=== PATIENT | female | born 2005 | race Caucasian/White ===

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

== ENCOUNTER 2024-12-15 18:54 | Inpatient (IN) | payer OTHER, SELFPAY ==
[2024-12-15] VITALS (7 sets, daily range): BP systolic 118–146; BP diastolic 70–86; PULSE 80–132; RESP 15–18; TEMP 37–38.8; O2SAT 97–100; BMI 24.5
--- NOTE | 2024-12-15 19:22 | CT_ITS ---
PROCEDURE: CT ABDOMEN/PELVIS W IV CONT ONLY 12/15/2024 REASON FOR EXAM: RIGHT FLANK AND RIGHT LOWER QUADRANT PAIN. TECHNIQUE: Procedure Code: [id number] Modality: CT Procedure: ABDOMEN/PELVIS W IV CONT ONLY Coronal and Sagittal reconstruction series were provided. One or more dose reduction techniques were used (e.g., Automated exposure control, adjustment of the mA and/or kV according to patient size, use of iterative reconstruction technique. RADIATION DOSE SUMMARY: DLP: 568.3 mGycm COMPARISON: None. FINDINGS: Lung bases: Clear. Liver: Unremarkable. Gallbladder: Unremarkable. Spleen: Unremarkable. Pancreas: Unremarkable. Adrenals: Unremarkable. Kidneys/Bladder: Bilateral multifocal patchy areas of cortical renal hypo enhancement, more pronounced on the right compatible with acute pyelonephritis. [id number]-wype-left urothelial enhancement consistent with ascending ureteritis/pyelitis. Urinary bladder is underdistended but there is circumferential wall thickening compatible with cystitis. Additionally, there is a tiny 1-2 mm minimally obstructive stone in the distal right ureter just proximal to the ureterovesicular junction, with associated mild right hydroureter. Reproductive Organs: Unremarkable. Bowel: Unremarkable. No obstruction or active inflammation. Normal appendix. Lymph nodes: No suspicious lymph node enlargement. Vasculature: Major vascular structures are patent, normal in course and caliber. Peritoneum / Retroperitoneum: No ascites or free air. Bones: Unremarkable. CT/Abdomen/Pelvis W IV Cont ONLY IMPRESSION: Findings of cystitis, and orjiy-[id number]-xkrf-left ureteritis and pyelonephritis . Additionally, there is a punctate minimally obstructing stone in the distal right ureter with associated mild right hydrour eter. Reading Location: [id number]
[2024-12-15 19:41] LABS: Hematocrit 33.5 % (37-47); Hemoglobin 11.1 g/dL (12.0-15.0); Immature Granulocytes Count 0.040 X10^3/uL (0.0-0.0); Mean Corp Hgb Conc 33.1 g/dL (32-36); Mean Corpuscular Volume 81.3 fL (81-99); Mean Platelet Vol. 9.2 fl (6.2-12.0); NRBC Flagged by Analyzer 0 % (0-5); Platelet Count 273 K/mm3 (150-450); RBC Distribution Width CV 14.3 % (11.6-14.6); RBC Distribution Width SD 42.3 fl (35.1-43.9); Red Blood Count 4.12 M/mm3 (4.2-5.4); White Blood Count 12.3 K/mm3 (4.4-11.0)
--- OUTSIDE RECORDS SUMMARY | 2024-12-15 19:41 | XMS RPT_ITS | CCD ---
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 Very High > or = 500 mg/dL Performed By: #### L [id number], L500.4100 #### [facility] [address] [place], [address] Vital Signs Date Time Vital Sign Value Performing Clinician Jmaar farias 07-30-2024 10:52-0400 Body height 160 cm Khadijah Matamoros APRN.MUSIC PRODUCER Work Phone: [facility] 07-30-2024 10:52-0400 Body mass index (BMI) [Ratio] 24.98 kg/m2 Khadijah Matamoros APRN.MUSIC PRODUCER Work Phone: [facility] 07-30-2024 10:52-0400 Body weight 63.96 kg Khadijah Matamoros APRN.MUSIC PRODUCER Work Phone: [facility] 07-30-2024 10:52-0400 Diastolic blood pressure 64 mm[Hg] Khadijah Matamoros APRN.MUSIC PRODUCER Work Phone: [facility] 07-30-2024 10:52-0400 Systolic blood pressure 110 mm[Hg] Khadijah Matamoros APRN.MUSIC PRODUCER Work Phone: [facility] 07-17-2023 10:26-0400 Body weight 70.13 kg Kelsea Elian 21 DEALER.MUSIC PRODUCER Work Phone: [facility] 07-17-2023 10:26-0400 Diastolic blood pressure 82 mm[Hg] Kelsea Elian 21 DEALER.MUSIC PRODUCER Work Phone: [facility] 07-17-2023 10:26-0400 Systolic blood pressure 120 mm[Hg] Kelsea Elian 21 DEALER.MUSIC PRODUCER Work Phone: [facility] 10-19-2022 08:37-0400 Body height 160.7 cm Kelsea Corydon 21 DEALER.MUSIC PRODUCER Work Phone: [facility] 10-19-2022 08:37-0400 Body mass index (BMI) [Percentile] Per age and sex 76.17 % Kelsea Corydon 21 DEALER.MUSIC PRODUCER Work Phone: [facility] 10-19-2022 08:37-0400 Body weight 62.32 kg Kelsea Corydon 21 DEALER.MUSIC PRODUCER Work Phone: [facility] 10-19-2022 08:37-0400 Diastolic blood pressure 60 mm[Hg] Kelsea Corydon 21 DEALER.MUSIC PRODUCER Work Phone: [facility] 10-19-2022 08:37-0400 Systolic blood pressure 100 mm[Hg] Kelsea Elian 21 DEALER.MUSIC PRODUCER Work Phone: [facility] 04-03-2022 08:30-0500 Body height 161 cm Omar Hopper MD Work Phone: [facility] 04-03-2022 08:30-0500 Body mass index (BMI) [Percentile] Per age and sex 82.31 % Omar Hopper MD Work Phone: [facility] 04-03-2022 08:30-0500 Body temperature 98.4 [degF] Omar Hopper MD Work Phone: [facility] 04-03-2022 08:30-0500 Body weight 64.86 kg Omar Hopper MD Work Phone: [facility] 04-03-2022 08:30-0500 Diastolic blood pressure 72 mm[Hg] Omar Hopper MD Work Phone: [facility] 04-03-2022 08:30-0500 Heart rate 64 /min Omar Hopper MD Work Phone: [facility] 04-03-2022 08:30-0500 Respiratory rate 20 /min Omar Hopper MD Work Phone: [facility] 04-03-2022 08:30-0500 Systolic blood pressure 108 mm[Hg] Omar Hopper MD Work Phone: [facility] Encounters Encounter Date Encounter Type Care Provider Facility Start: 07-30-2024 End: 07-30-2024 Patient encounter procedure Khadijah Matamoros APRN.MUSIC PRODUCER Work Phone: OB/Gynecology Comment on above: Encounter for gyneco logical examination (general) (routine) without abnormal findings (Primary Dx); Encounter for initial prescription of contraceptive pills Start: 07-30-2024 End: 07-30-2024 Patient encounter status Khadijah Matamoros APRN.MUSIC PRODUCER Work Phone: [facility] Start: 07-30-2024 End: 07-30-2024 ambulatory KHADIJAH MATAMOROS Facility:[facility] Start: 07-30-2024 Encounter for gynecological examination (general) (routine) without abnormal findings KHADIJAH JAMES [facility] Start: 07-29-2024 End: 07-29-2024 Refill Kelsea Elian 21 DEALER.MUSIC PRODUCER Work Phone: OB/Gynecology Comment on above: Refill Request Start: 07-17-2023 End: 07-17-2023 Patient encounter procedure Kelsea Elian 21 DEALER.MUSIC PRODUCER Work Phone: OB/Gynecology Comment on above: Encounter for gyneco logical examination (general) (routine) without abnormal findings (Primary Dx); Encounter for surveillance of contraceptive pills Start: 07-17-2023 End: 07-17-2023 Patient encounter status Kelsea Plummer APRN.MUSIC PRODUCER Work Phone: [facility] Work Phone: Start: 10-19-2022 End: 10-19-2022 Patient encounter procedure Kelsea Corydon KENNY.MUSIC PRODUCER Work Phone: OB/Gynecology Comment on above: Encounter for gyneco logical examination (general) (routine) without abnormal findings (Primary Dx); Encounter for surveillance of contraceptive pills Start: 10-19-2022 End: 10-19-2022 Patient encounter status Kelsea Plummer 21 DEALER.MUSIC PRODUCER Work Phone: OB/Gynecology Start: 10-03-2022 Refill Omar Hopper MD Work Phone: [facility] [place] Comment on above: Refill Request Start: 04-03-2022 End: 04-03-2022 Patient encounter status Omar Hopper MD Work Phone: [facility] [place] Start: 04-03-2022 End: 04-03-2022 Periodic preventive med est patient 12-17yrs Omar Hopper MD Work Phone: [facility] [place] Comment on above: Encounter for routin e child health examination w/o abnormal findings (Primary Dx) Start: 03-31-2022 Refill Omar Hopper MD Work Phone: [facility] [place] Comment on above: Refill Request Start: 01-31-2022 End: 01-31-2022 Patient encounter procedure Nurse Josi [place] [facility] [place] Comment on above: Encounter for immuni zation (Primary Dx) Start: 07-30-2020 End: 07-30-2020 Subsequent hospital visit by physician Cait [facility] [place] Work Phone: Radiology Comment on above: Finger injury, left, initial encounter [S69.92XA] Procedures Date Procedure Procedure Detail Performing Clinician Start: 04-03-2022 Adult depression screening assessment Omar Hopper MD Work Phone: Start: 01-31-2022 Menacwy-tt conj vacc serogroups acwy for im use Cherelle Liz PA-C Work Phone: Start: 07-30-2020 Radex fingr minimum 2 views Gege Connolly 21 DEALER.MUSIC PRODUCER Work Phone: Start: 04-19-2020 Adult depression screening assessment Nurse [place] Plan of Treatment Date Care Activity Detail Author Start: 07-10-2026 Urine microalbumin profile [facility] Start: 08-17-2025 End: 08-17-2025 Patient encounter procedure 08/17/2025 10:15 AM EDT Office Visit OB/Gynecology [address] [place] [address] Khadijah Matamoros APRN.MUSIC PRODUCER [address] [place] [address] Annual [facility]cology Comment on above: Annual Start: 07-30-2024 End: 07-30-2024 Patient encounter procedure 07/30/2024 10:15 AM EDT Office Visit OB/Gynecology [address] [place] [address] Khadijah Matamoros, KENNY.MUSIC PRODUCER [address] [place] [address] annual OB/Gynecology Comment on above: annual Start: 12-16-2023 Covid-19 Vaccine ( season) Covid-19 Vaccine ( season) [facility] Start: 12-16-2023 Influenza vaccination [facility] Start: 04-16-2023 Depression Assessment Depression Ass essment [facility] Start: 04-03-2023 Adult depression screening assessment DEPRESSION SCREENING [facility] Start: 12-15-2022 Covid-19 Vaccine ( season) Covid-19 Vaccine ( season) [facility] Start: 12-15-2022 Influenza vaccination [facility] Start: 2022 Anxiety Screening Anxiety Screening [facility] Start: 2022 CHLAMYDIA SCREENING (18-24) CHLAMYDIA SCREENING (18-24) [facility] Start: 2022 Depression Screening Depression Scre ening [facility] Start: 2022 GC (GONORRHEA) SCREE JOSÉ MIGUEL (18-24) GC (GONORRHEA) SCREENING (18-24) [facility] Start: 2022 HEPATITIS C SCREENING HEPATITIS C SC KAMERON [facility] Start: 2022 Hepatitis C screening Hepatitis C Sc reening [facility] Start: 2022 HIV SCREENING HIV SCREENING [facility] Start: 2022 HIV screening HIV Screening [facility] Start: 2022 Screening for Chlamy miguelina trachomatis Chlamydia Screening (18-24) [facility] Start: 04-16-2022 DEPRESSION ASSESSMENT DEPRESSION ASS ESSMENT [facility] Start: 12-15-2021 Influenza vaccination INFLUENZA (#1) [facility] Start: 04-19-2021 Adult depression screening assessment DEPRESSION SCREENING [facility] Start: 2020 Meningococcal B Vacc ine (1 of 2 - Standard) Meningococcal B Vaccine (1 of 2 - Standard) [facility] Start: 2020 Meningococcal B Vacc ine: Consider Based On Risk (1 of 2 - Patient Seeks Protection) Meningococcal B Vaccine: Consider Based On Risk (1 of 2 - Patient Seeks Protection) [facility] Start: 2019 CHLAMYDIA SCREENING (<18) CHLAMYDIA SCREENING (<18) [facility] Start: 2019 GC (GONORRHEA) SCREE JOSÉ MIGUEL (<18) GC (GONORRHEA) SCREENING (<18) [facility] Start: 2018 PEDS TO ADULT TRANSI TION ANNUAL ASSESSMENT PEDS TO ADULT TRANSITION ANNUAL ASSESSMENT [facility] Start: 2016 PEDS TO ADULT TRANSI TION INITIAL DISCUSSION PEDS TO ADULT TRANSITION INITIAL DISCUSSION [facility] Start: 2014 MENINGOCOCCAL B: 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 based on risk (1 of 2 - Risk Bexsero 2-dose series) MENINGOCOCCAL B: Consider based on risk (1 of 2 - Risk Bexsero 2-dose series) [facility] Start: 2004 COVID-19 VACCINE (#1) COVID-19 VACCI NE (#1) [facility] Immunizations Immunization Date Immunization Notes Care Provider Ginger sahu 01-31-2022 meningococcal (MenACWY-TT) vaccine, quadrivalent (MENQUADFI) Nurse [place] [facility] Work Phone: 04-19-2020 Human Papillomavirus 9-valent vaccine Nurse [place] [facility] 04-19-2020 influenza, injectabl e, quadrivalent, contains preservative Nurse [facility] 04-19-2020 influenza virus vacc ine, unspecified formulation Kelsea Plummer APRN.CNP Work Phone: [facility] 09-12-2017 Human Papillomavirus 9-valent vaccine Nurse [facility] 07-10-2016 meningococcal polysaccharide (groups A, C, Y and W-135) diphtheria toxoid conjugate vaccine (MCV4P) Nurse [facility] 07-10-2016 tetanus toxoid, redu karolina diphtheria toxoid, and acellular pertussis vaccine, adsorbed Nurse [facility] 07-19-2009 diphtheria, tetanus toxoids and acellular pertussis vaccine Nurse [facility] Work Phone: 07-19-2009 measles, mumps and rubella virus vaccine Nurse [facility] Work Phone: 07-19-2009 poliovirus vaccine, inactivated Nurse [facility] Work Phone: 07-19-2009 varicella virus vaccine Nurse [facility] Work Phone: 01-07-2009 haemophilus influenz ae type b vaccine, HbOC conjugate [facility] Work Phone: 01-07-2009 influenza virus vacc ine, live, attenuated, for intranasal use Nurse [facility] Work Phone: 02-27-2006 influenza virus vacc ine, unspecified formulation Nurse [facility] Work Phone: 02-27-2006 pneumococcal conjuga te vaccine, 7 valent Nurse [facility] Work Phone: 10-23-2005 diphtheria, tetanus toxoids and acellular pertussis vaccine [facility] Work Phone: 05-08-2005 haemophilus influenz ae type b conjugate and Hepatitis B vaccine Nurse [facility] Work Phone: 05-08-2005 measles, mumps and rubella virus vaccine Nurse [facility] Work Phone: 05-08-2005 varicella virus vaccine Nurse [facility] Work Phone: 02-21-2005 influenza virus vacc ine, unspecified formulation Nurse [facility] Work Phone: 02-01-2005 diphtheria, tetanus toxoids and acellular pertussis vaccine Nurse [facility] 02-01-2005 poliovirus vaccine, inactivated Nurse [facility] 2004 pneumococcal conjuga te vaccine, 7 valent [facility] 2004 diphtheria, tetanus toxoids and acellular pertussis vaccine [facility] 2004 haemophilus influenz ae type b vaccine, HbOC conjugate [facility] 2004 hepatitis B vaccine, pediatric or pediatric/adolescent dosage Nurse [facility] 2004 poliovirus vaccine, inactivated Nurse [facility] 2004 pneumococcal conjuga te vaccine, 7 valent [facility] 2004 diphtheria, tetanus toxoids and acellular pertussis vaccine [facility] 2004 haemophilus influenz ae type b vaccine, HbOC conjugate [facility] 2004 hepatitis B vaccine, pediatric or pediatric/adolescent dosage [facility] 2004 poliovirus vaccine, inactivated [facility] 2004 pneumococcal conjuga te vaccine, 7 valent [facility] Payers Date Payer Category Payer Private Health Insurance [id number] 2022 Unknown [id number] 2020 Private Health Insurance [id number] Social History Date Type Detail Facility Start: 09-12-2017 End: 04-03-2022 Tobacco smoking status NHIS Never smoked tobacco [facility] Start: 09-12-2017 End: 04-03-2022 Tobacco use and exposure Smokeless tobacco non-user [facility] Start: 11-15-2020 End: 07-30-2024 Alcohol intake Lifetime non-drinker (finding) [facility] Start: 04-19-2020 End: 04-03-2022 History SDOH Alcohol Frequency 1 [facility] Start: 2004 Sex Assigned At Not on file [facility] Start: 06-30-2020 End: 01-12-2022 Exposure to SARS-CoV-2 (event) Not sure [facility] Work Phone: Start: 04-03-2022 History SDOH Physica l Activity DPW 6 [facility] Start: 04-03-2022 History SDOH Physica l Activity MPS 5 [facility] Start: 04-03-2022 History SDOH Transport Med 2 [facility] Start: 04-19-2020 End: 10-03-2022 History of Social function [facility] Start: 04-19-2020 End: 10-03-2022 Alcohol Use Disorder Identification Test - Consumption [AUDIT-C] [facility] How often to you hav e a drink containing alcohol? Never [facility] Average Number of Drinks Not on file [facility] (I/We) worried porfirio er (my/our) food would run out before (I/we) got money to buy more. Never true [facility] In the past 12 month s, was there a time when you were not able to pay the mortgage or rent on time? No [facility] Functional Status Date Assessment Result Facility 07-09-2013 Are you deaf, or do you have serious difficulty hearing No 07/09/2013 11:10 AM Ly Wayne RN No [facility] 07-09-2013 Are you blind, or do you have serious difficulty seeing, even when wearing glasses No 07/09/2013 11:10 AM Ly Wayne RN No [facility] 07-09-2013 Do you have serious difficulty walking or climbing stairs No 07/09/2013 11:10 AM Ly Wayne RN No [facility] 07-09-2013 Do you have difficul ty dressing or bathing No 07/09/2013 11:10 AM Ly Wayne RN No [facility] Mental Status Date Assessment Result Facility 07-09-2013 Because of a physica l, mental, or emotional condition, do you have serious difficulty concentrating, remembering, or making decisions Yes 07/09/2013 11:10 AM Ly Wayne RN Yes [facility] Clinical Notes 07-30-2020 to 07-30-2024 Patient InstructionsKhadijah Matamoros APRN.[facility] - 07/30/2024 10:49 AM EDTTelephone Encounter - Jaycee Contreras RN - 07/29/2024 11:04 AM EDKelsea Arriola APRN.MUSIC PRODUCER - 07/17/2023 10:24 AM EDT Note Date & Type Note Facility 07-30-2024 Instructions Khadijah Matamoros APRN.[facility] - 07/30/2024 11:07 AM EDT Oral Contraceptives: The Pill Beginning the Pill Pills come in either a 21 day pack or a 28 day pack. With the 21 day pack you will take one pill for 21 days then no pill for 7 days, during which time you will have what is known as withdrawal bleeding. The 28 day pack allows you to take a pill every day of the cycle with no interruptions. The first 21 pills are the pills with the active ingredients and the last 7 are the nonmedical pills (placebo) or they may contain iron. There will be bleeding during the week you are taking the nonmedical pills. The advantage to the 28 day pack is that you don t have to keep track of when you stopped the pill. There are a group of 28 day pills that contain 24 active pills and only 4 placebo pills. These are formulated to give you a rand butter period. First day of next menstrual period start OR Quick Start (starting the day you get the pill) when reasonably certain not . Use 7 day back up contraception. OR Sunday start. Use back up contraception for 7 days. Sunday start can result in no period on weekends. Read your information packet that comes with the pills. Pill Benefits The pill is the most popular method of reversible control being used today. Millions of women rely on oral contraceptives as their control method. It is important to have an examination by your physician to determine if the pill is safe for you. There are several advantages associated with the pill: it is 97-98% effective when used correctly; may improve acne; periods are more regular and less painful; there is less iron deficiency anemia in pill users. [facility] use is associated with a decreased incidence of ovarian and uterine cancer. There is also no evidence that the pill increases the incidence of any cancer. How Oral Contraceptives Work Oral contraceptives come in two varieties. One is the combination pill which contains both estrogen and progesterone. Combination pills are considered 98-99% effective in preventing . This pill comes in either monophasic, which delivers the same amount of estrogen and progesterone throughout the cycle; and triphasic, which try tries to mimic the normal hormone cycle by changing the levels of the hormones in the pills during the month. There is no real advantage to taking the one over the other. The other type of pill only contains progesterone. It is best used for women who can t take estrogen. This type of pill is slightly less effective than the combination pill in preventing . It is VERY important to take the progesterone only pill at the same time every day. Oral contraceptives prevent ovulation (release of an egg from the ovary) by suppressing the pituitary gland s action. The pill does NOT prevent sexually transmitted disease. Obtaining a Prescription It is important to see your doctor before starting oral contraceptives so that you can have a full medical history taken and a physical examination given. Certain medical conditions may make the pill inappropriate for you, therefore it is very important to be honest and as complete as possible with the information you share with your doctor. The types of predisposing factors which would make the pill a poor choice of control would include: History of blood clots Stroke Serious liver disease or impaired liver function Unexplained vaginal bleeding or Cancer of the reproductive system Active gall bladder disease Hypertension Possible Side Effects It can take up to three months for your body to become adjusted to the pill. The more common side effects experienced at this time are: breakthrough spotting or bleeding, which is bleeding at any other time other than when you should be having a period; nausea or vomiting; breast tenderness; and mild fluid retention. There is no long-term weight gain with the use of the pill. Breakthrough bleeding is the most common complaint of new pill users. There is no way to predict who will have it and there is no way of preventing it. Breakthrough bleeding usually subsides on its own with no further treatment after the first three months of taking the pill. If these symptoms continue to occur after the first three months you should check with your physician to see if there is any physical cause and possibly change to another control pill. Problems: Missed 1 pill: Take 2 pills the next day. Missed 2 pills: Take 2 pills the next day and 2 pills the following day. Also use another form of control (condoms) along with the pill for the rest of the month. Missed 3 or more pills: You have two choices. You can take two pills each day until you are on schedule, plus use an additional form of control along with the pill for the rest of the month. Or you can stop the pill and start a completely new pack of pills the next Sunday. You must use another form of control with the pill for at least the first two weeks of the new pack. You re ill and you have been vomiting or have diarrhea: You must use another form of control with the pill since the pill may not be fully absorbed during your illness. Continue to use the added control until the end of the cycle. Desire to become : Stop using the pill for one month before trying to become . Taking other medications: The control pill is less effective when you take the antibiotic Rifampin, epilepsy (seizure) drugs such as phenytoin, carbamazepine, phenobarbital, topiramate and some medications for HIV. Let your doctor know if you start taking any of these medications while on the pill. Symptoms to Notify Your Doctor with Immediately: Pain in your chest or legs Continuous blurred vision Severe headaches Slurred speech Tingling or weakness on one side of your body Shortness of breath Swelling of one leg Refills of Control Pills You need to see a doctor every year for a refill of your prescription. This is necessary in order that your health can be monitored closely while you are taking control pills. If your prescription should before your next scheduled appointment you can usually get a one month extension from your doctors office if you call during regular business hours about one week before you need to start the new package of pills. This allows the physician to refer to your chart for necessary health information. documented in this encounter [facility] 07-30-2024 Note HNO ID: [id number] Author: KHADIJAH MATAMOROS APRN.CNP Service: ? Author Type: Nurse Practitioner Type: Progress Notes Filed: 07/30/2024 11:15 Note Text: Justine is a 19 year old who presents for an annual gynecologic exam without complaints. 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 Interested in nutrition. Presents: alone Still get period: Yes Menses: cycles every 28 days and 3-4 days of flow Bleeding amount bothersome: No Bleeding between periods: No Period symptoms: Acne; Cramps; Mood change control frequency: Always HPV vaccine: Yes Last pap smear: never Bothersome pelvic pain: No Sexually Active: Yes OB History Gravida0 Para0 Term0 Preterm0 AB0 Living0 SAB0 IAB0 Ectopic0 Multiple0 Live Births0 Bottom Worker History LMP: 07/05/2024, Having periods Age at Menarche: 11 Age at First : Age at Menopause: Bottom Worker History Comments: Sexual Activity: Yes; Male Contraception: Pill Menstrual Tracking History Flowsheet Row Appointment from 07/30/2024 in OB/Gynecology Period Duration (Days) 3 Menstrual Flow Light PAST MEDICAL HISTORY Diagnosis Date NEGATIVE MEDICAL HISTORY PAST SURGICAL HISTORY Procedure Laterality Date NONE FAMILY HISTORY Problem Relation Age of Onset Cancer Mother Diabetes Mother Maternal AND Paternal sides No Known Problems Father No Known Problems Sister No Known Problems Sister No Known Problems Sister No Known Problems Maternal Grandmother No Known Problems Maternal Grandfather No Known Problems Paternal Grandmother No Known Problems Paternal Grandfather SOCIAL HISTORY Social History Tobacco Use Smoking status: Never Smokeless tobacco: Never Vaping Use Vaping status: Never Used Substance Use Topics Alcohol use: Never Drug use: Never REVIEW OF SYSTEMS Abdomen: No bloating, early satiety, indigestion, or increased flatulence. No abdominal pain, nausea, vomiting, diarrhea, or constipation. Bladder: No dysuria, gross hematuria, urinary frequency, urinary urgency, or incontinence. Breast: No breast lumps, nipple d/c, overlying skin changes, redness or skin retraction. Allergies and current medication updated:Yes SENSITIVE EXAM: Sensitive exam declined. Discussed rationale and impact on treatment. EXAM: BP 110/64 Ht 5' 3 (1.60m) Wt 141 lb (64.0kg) LMP 07/05/2024 BMI 24.98 kg/(m2). GENERAL: pleasant, in no apparent distress HEENT: Normocephalic, atraumatic, mucus membranes moist, and no lesions NECK: Supple, full range of motion, no adenopathy, and thyroid normal DERMATOLOGY: Normal, without lesions, non-icteric, and non-hirsute BREAST: deferred CHEST: Normal inspiratory effort ABDOMEN: soft, non-tender, and no masses PELVIC: deferred BIMANUAL: deferred NEURO: alert and oriented x3,exam grossly non-focal EXTREMITIES: normal ASSESSMENT/PLAN: 1) Health maintenance: Pap starting at the age of 21. Safe sex practices reviewed. Nutrition, exercise, and routine health maintenance exams reviewed. HPV vaccine completed series.. 2) Contraception: combined hormonal contraceptives. . Denies migraines with aura, VTE history or clotting disorder, hypertension, or liver issues. Does not smoke. Reviewed risks of OCP. Written info provided. 3) STD screening: Declined STD check. 4) Follow up one year or sooner as needed. Khadijah Matamoros APRN.[facility] 07-30-2024 History of Presen t illness Narrative Justine is a 19 year old who presents for an annual gynecologic exam without complaints. 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 Interested in nutrition. Presents: alone Still get period: Yes Menses: cycles every 28 days and 3-4 days of flow Bleeding amount bothersome: No Bleeding between periods: No Period symptoms: Acne; Cramps; Mood change control frequency: Always HPV vaccine: Yes Last pap smear: never Bothersome pelvic pain: No Sexually Active: Yes OB History Gravida0 Para0 Term0 Preterm0 AB0 Living0 SAB0 IAB0 Ectopic0 Multiple0 Live Births0 Bottom Worker History LMP: 07/05/2024, Having periods Age at Menarche: 11 Age at First : Age at Menopause: Bottom Worker History Comments: Sexual Activity: Yes; Male Contraception: Pill Menstrual Tracking History Flowsheet Row Appointment from 07/30/2024 in OB/Gynecology Period Duration (Days) 3 Menstrual Flow Light PAST MEDICAL HISTORY Diagnosis Date NEGATIVE MEDICAL HISTORY PAST SURGICAL HISTORY Procedure Laterality Date NONE FAMILY HISTORY Problem Relation Age of Onset Cancer Mother Diabetes Mother Maternal & Paternal sides No Known Problems Father No Known Problems Sister No Known Problems Sister No Known Problems Sister No Known Problems Maternal Grandmother No Known Problems Maternal Grandfather No Known Problems Paternal Grandmother No Known Problems Paternal Grandfather SOCIAL HISTORY Social History Tobacco Use Smoking status: Never Smokeless tobacco: Never Vaping Use Vaping status: Never Used Substance Use Topics Alcohol use: Never Drug use: Never REVIEW OF SYSTEMS Abdomen: No bloating, early satiety, indigestion, or increased flatulence. No abdominal pain, nausea, vomiting, diarrhea, or constipation. Bladder: No dysuria, gross hematuria, urinary frequency, urinary urgency, or incontinence. Breast: No breast lumps, nipple d/c, overlying skin changes, redness or skin retraction. Allergies and current medication updated:Yes SENSITIVE EXAM: Sensitive exam declined. Discussed rationale and impact on treatment. EXAM: BP 110/64 Ht 5' 3 (1.60m) Wt 141 lb (64.0kg) LMP 07/05/2024 BMI 24.98 kg/(m^2). GENERAL: pleasant, in no apparent distress HEENT: Normocephalic, atraumatic, mucus membranes moist, and no lesions NECK: Supple, full range of motion, no adenopathy, and thyroid normal DERMATOLOGY: Normal, without lesions, non-icteric, and non-hirsute BREAST: deferred CHEST: Normal inspiratory effort ABDOMEN: soft, non-tender, and no masses PELVIC: deferred BIMANUAL: deferred NEURO: alert and oriented x3,exam grossly non-focal EXTREMITIES: normal ASSESSMENT/PLAN: 1) Health maintenance: Pap starting at the age of 21. Safe sex practices reviewed. Nutrition, exercise, and routine health maintenance exams reviewed. HPV vaccine completed series.. 2) Contraception: combined hormonal contraceptives. . Denies migraines with aura, VTE history or clotting disorder, hypertension, or liver issues. Does not smoke. Reviewed risks of OCP. Written info provided. 3) STD screening: Declined STD check. 4) Follow up one year or sooner as needed. Khadijah Matamoros APRN.AG documented in this encounter [facility] 07-29-2024 Telephone encount er Note Last annual 07/2023. Transferred to [facility] to schedule annual - had to update insurance. Requested Prescriptions Pending Prescriptions Disp Refills Drospirenone-Ethinyl Estradiol (WENDY, 28,) 3-0.02 mg per tablet 84 tablet 0 Sig: Take 1 tablet by mouth once daily. Jaycee Contreras RN [facility] 07-29-2024 Miscellaneous Notes Formattin g of this note is different from the original. Last annual 07/2023. Transferred to [facility] to schedule annual - had to update insurance. Requested Prescriptions Pending Prescriptions Disp Refills Drospirenone-Ethinyl Estradiol (WENDY, 28,) 3-0.02 mg per tablet 84 tablet 0 Sig: Take 1 tablet by mouth once daily. Jaycee Contreras RN documented in this encounter [facility] 07-17-2023 History of Presen t illness Narrative Justine is a 18 year old who presents for an annual gynecologic exam without complaints. Presents: alone Menses: cycles every 21-24 days and 3 days of flow. Contraception: combined hormonal contraceptives HPV vaccine: Yes Last pap smear: never Sexually active: Yes Patient concerns for STD exposure: No. Pain with intercourse: No Postcoital bleeding: No OB History T0 L0 SAB0 IAB0 Ectopic0 Multiple0 Live Births0 Bottom Worker History LMP: 07/14/2023 (Exact Date), Having periods Age at Menarche: Age at First : Age at Menopause: Bottom Worker History Comments: Sexual Activity: Yes; Male Contraception: Pill PAST MEDICAL HISTORY Diagnosis Date NEGATIVE MEDICAL HISTORY PAST SURGICAL HISTORY Procedure Laterality Date NONE FAMILY HISTORY Problem Relation Age of Onset Cancer Mother Diabetes Mother Maternal & Paternal sides No Known Problems Father No Known Problems Sister No Known Problems Sister No Known Problems Sister No Known Problems Maternal Grandmother No Known Problems Maternal Grandfather No Known Problems Paternal Grandmother No Known Problems Paternal Grandfather SOCIAL HISTORY Social History Tobacco Use Smoking status: Never Smokeless tobacco: Never Vaping Use Vaping Use: Never used Substance Use Topics Alcohol use: Never Drug use: Never REVIEW OF SYSTEMS Abdomen: No bloating, early satiety, indigestion, or increased flatulence. No abdominal pain, nausea, vomiting, diarrhea, or constipation. Bladder: No dysuria, gross hematuria, urinary frequency, urinary urgency, or incontinence. Breast: No breast lumps, nipple d/c, overlying skin changes, redness or skin retraction. Allergies and current medication updated:Yes EXAM: BP 120/82 Wt 154 lb 9.6 oz (70.1kg) LMP 07/14/2023 GENERAL: pleasant, in no apparent distress HEENT: Normocephalic, atraumatic, mucus membranes moist, and no lesions CHEST: Normal inspiratory effort NEURO: alert and oriented x3,exam grossly non-focal EXTREMITIES: normal ASSESSMENT/PLAN: 1) Health maintenance: Pap starting at the age of 21. Safe sex practices reviewed. HPV vaccine completed series.. 2) Contraception: combined hormonal contraceptives. Contraceptive options reviewed and information provided. 3) STD screening: Declined STD check. 4) Follow up one year or sooner as needed. Kelsea Plummer APRN.CNP documented in this encounter [facility] 10-19-2022 History of Presen t illness Narrative Justine is a 17 year old who presents for an annual gynecologic exam without complaints. Presents: alone Menses: cycles every 21-24 days and 3 days of flow. Contraception: combined hormonal contraceptives HPV vaccine: Yes Last pap smear: never Sexually active: Yes History of STDS: None Patient concerns for STD exposure: No. OB History T0 L0 SAB0 IAB0 Ectopic0 Multiple0 Live Births0 Bottom Worker History LMP: 10/02/2022 (Exact Date), Having periods Age at Menarche: Age at First : Age at Menopause: Bottom Worker History Comments: Sexual Activity: Yes; Male Contraception: Pill PAST MEDICAL HISTORY Diagnosis Date NEGATIVE MEDICAL HISTORY PAST SURGICAL HISTORY Procedure Laterality Date NONE FAMILY HISTORY Problem Relation Age of Onset Cancer Mother Diabetes Mother Maternal & Paternal sides No Known Problems Father No Known Problems Sister No Known Problems Sister No Known Problems Sister No Known Problems Maternal Grandmother No Known Problems Maternal Grandfather No Known Problems Paternal Grandmother No Known Problems Paternal Grandfather SOCIAL HISTORY Social History Tobacco Use Smoking status: Never Smokeless tobacco: Never Vaping Use Vaping Use: Never used Substance Use Topics Alcohol use: Never Drug use: Never REVIEW OF SYSTEMS Abdomen: No bloating, early satiety, indigestion, or increased flatulence. No abdominal pain, nausea, vomiting, diarrhea, or constipation. Bladder: No dysuria, gross hematuria, urinary frequency, urinary urgency, or incontinence. Breast: No breast lumps, nipple d/c, overlying skin changes, redness or skin retraction. Allergies and current medication updated:Yes EXAM: Ht 5' 3.25 (1.61m) Wt 137 lb 6.4 oz (62.3kg) LMP 10/02/2022 BMI 24.13 kg/(m^2). GENERAL: pleasant, in no apparent distress HEENT: Normocephalic, atraumatic, mucus membranes moist, and no lesions CHEST: Normal inspiratory effort NEURO: alert and oriented x3,exam grossly non-focal EXTREMITIES: normal ASSESSMENT/PLAN: 1) Health maintenance: Pap starting at the age of 21. HPV vaccine completed series.. 2) Contraception: combined hormonal contraceptives. Contraceptive options reviewed and information provided. 3) STD screening: Declined STD check. 4) Follow up one year or sooner as needed. Kelsea Plummer APRN.AG documented in this encounter [facility] 10-03-2022 Miscellaneous Notes Formattin g of this note might be different from the original. Patient called. Her insurance just changed and WENDY is not covered. Patient is willing to pay out of pocket at this time until other options are discussed. Aware RM sent in one pack with one refill until her visit. Kathie Urbano RN Received call from [facility] that patient can no longer receive refills of OCP by Peds since she is now 17 and will need to see FORESTRY TECHNICAL OFFICER. Patient is leaving for vacation on and will need to start a new pack. Patient has a New annual on 10/19 with RM. Can we please send in an extension of OCP until she establishes care with our office next month? RX pending. Kathie Urbano RN documented in this encounter [facility] 10-03-2022 Miscellaneous Notes Formattin g of this note might be different from the original. refilled by FORESTRY TECHNICAL OFFICER today Last [facility]: 04/03/22 - call transferred to [facility] to assist with scheduling for FORESTRY TECHNICAL OFFICER. Verify RX Benefits Completed Last medication refill date: 03/31/22 (336 tabs- only 1 pack given, patient checked with [facility] and states they have no remaining refills on file. She has been off the medication.) Requesting 30 day supply Retail pharmacy updated: Completed Patient aware RX will be sent to pharmacy. No need to notify patient. Immunizations due: COVID-19 VACCINE(1) Never done MENINGOCOCCAL B: Consider based on risk(1 of 2 - Risk Bexsero 2-dose series) Never done DEPRESSION ASSESSMENT Never done GC (GONORRHEA) SCREENING (18-24) Never done HEPATITIS C SCREENING Never done HIV SCREENING Never done CHLAMYDIA SCREENING (18-) Never done Ly Worley RN documented in this encounter [facility] 04-03-2022 History of Presen t illness Narrative WELL VISIT PEDIATRIC FEMALE 14-17 YRS OLD SERVICE DATE: 04/03/2022 Justine is a 16 year old female who presents today for well exam accompanied by her mother. 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 PEDI MULTIVIT NO.7/FOLIC ACID (FLINTSTONES MULTI-VIT GUMMIES ORAL) Take by mouth. Ascorbic Fjuy-Afprvsweh-Gyc (EMERGEN-C) 1,000 mg pwep Take by mouth. FAMILY HISTORY Problem Relation Age of Onset Cancer Mother Diabetes Mother Maternal & Paternal sides Social History Social History Narrative Not on file Smoking Exposure: Does your child spend a significant amount of time in the care of anyone who smokes? No School: Grade: 12th; grades A-B and C. Planning on college next year Physical Activity: more than 1 hour of physical activity per day works at [employer] Screen Time totaling more than 2 hours of screen time per day. Safety: Pediatric SDOH - Response to gun questions 04/03/2022 Are there any guns kept in or around your home or where your child spends time? No Reviewed seat belts, smoke detectors, and driving Diet: -Eats 3 meals per day and 4-5 snacks per day -Typical beverages include water, vitamin water, oj -Fruits and vegetables are eaten with nearly every meal -# of fast food meals/week: 2 -# of days/week that family has dinner together: 7 Elimination: no concerns, normal size and consistency Dental: dental care current Sleep: -no sleep concerns Yes, cell phone turned off before bedtime- Yes -television in bedroom -computer in bedroom Vision: No vision concerns Hearing: No hearing concerns Growth: No growth concerns Gynecological history: LMP: 03-29-22 Cycles are regular and last 3-4 days. Dysmenorrhea: none Heavy periods: no Substance use: none High risk behaviors: none Sexual History: Attraction: male Sexually Active: No Body image: satisfactory Screening tools reviewed and discussed with patient/[id number]-S and Social Determinants of Health. Please see Patient Entered Data. OBJECTIVE Physical Exam: BP 108/72 Pulse 64 Temp 36.9 C (98.4 F) (Temporal) Resp 20 Ht 161 cm (5' 3.39) Wt 64.9 kg (143 lb) LMP 03/29/2022 (Exact Date) BMI 25.02 kg/m Blood pressure percentiles are 42 % systolic and 79 % diastolic based on the 2017 AAP Clinical Practice Guideline. This reading is in the normal blood pressure range. 82 %ile (Z= 0.93) based on CDC (Girls, 2-20 Years) BMI-for-age based on BMI available as of 04/03/2022. Last BMI: Wt: 59.8 kg (131 lb 12.8 oz) (69 %, Z= 0.51)* BMI: 23.72 kg/(m^2) Last 4 Encounter Wt Readings: Date: Wt: 11/15/2020 59.8 kg (131 lb 12.8 oz) (69 %, Z= 0.51)* 07/30/2020 60.3 kg (133 lb) (72 %, Z= 0.58)* 04/19/2020 61.7 kg (136 lb) (76 %, Z= 0.72)* 11/21/2019 65.8 kg (145 lb) (85 %, Z= 1.05)* Last 4 Encounter Ht Readings: Date: Ht: 11/15/2020 158.8 cm (5' 2.5) (27 %, Z= -0.62)* 04/19/2020 160 cm (5' 2.99) (35 %, Z= -0.39)* 11/25/2018 160 cm (5' 3) (42 %, Z= -0.21)* 09/12/2017 158.8 cm (5' 2.5) (50 %, Z= 0.01)* General: Well developed, No acute distress Head: normocephalic Eyes: conjunctivae/corneas clear Ears: normal external ear and canal, tympanic membranes with normal landmarks Nose: no erythema or rhinorrhea Oropharynx: moist mucous membranes, no erythema or exudate Neck: Supple, no adenopathy; thyroid symmetric, normal size, no bruits Spine: Back symmetric, no curvature Resp: lungs clear to auscultation Heart: RRR, normal S1 and S2. , No murmurs Abdomen: Soft, nontender, nondistended, no palpable organomegaly or masses, normal bowel sounds Extremities: Full ROM and no swelling, erythema or tenderness Neuro: No focal deficits or abnormal findings present Skin: no rashes, lesions or jaundice ASSESSMENT & PLAN Encounter Diagnosis ICD-10-CM 1. Encounter for routine child health examination w/o abnormal findings Z00.129 82 %ile (Z= 0.93) based on CDC (Girls, 2-20 Years) BMI-for-age based on BMI available as of 04/03/2022. Justine is normal weight (BMI 5th% - 84th%): -To maintain a healthy weight, discussed limiting screen time to less than 2 hours per day, physical activity for at least one hour per day, 5 servings of fruits and vegetables per day, 3 meals per day, family meals ar home and no sugar containing beverages Based on PHQ-A Score: 1 (recommended cut off score is 11) and interview, presentation is not consistent with depression - Adolescent anticipatory guidance discussed. - Discussed diet and safety. - Dental care discussed. - Bright Futures handout given (See Patient Instructions). - Immunizations not given at today's visit due to parent not being reachable. Future nurse visit recommended. Patient was counseled [id number] by myself (the billing provider) for the following immunizations and vaccine components, including side effects: Influenza and Men B. She will declined COVID-vaccine. She reports mom had side effects that were worse than chemo - Follow up in one year for routine physical. SIGNATURE: Omar Hopper MD PATIENT NAME: Justine Turner DATE: April 03, 2022 TIME: 8:28 AM documented in this encounter [facility] 03-31-2022 Miscellaneous Notes Formattin g of this note might be different from the original. Mother notified and states that patient is not having any issues with her OCP. [facility] scheduled for 04/03/22. Ly Worley RN I can refill if she is not having any issues. If she is having any issues with her OCP then I recommend being seen by FORESTRY TECHNICAL OFFICER I do recommend that she get scheduled for a well check The following approved medication requests have been transmitted electronically. Requested Prescriptions Signed Prescriptions Disp Refills WENDY, 28, 3-0.02 mg per tablet 336 tablet 0 Sig: Take 1 tablet by mouth once daily. Authorizing Provider: OMAR HOPPER MD Mom is wondering if pt's WENDY can be refilled or do you recommend pt be seen? Last visit was on 04/19/2020. documented in this encounter [facility] 07-30-2020 History of Presen t illness Narrative Radiology Service Progress Note PATIENT NAME: Justine Turner DATE OF SERVICE: July 30, 2020 TIME: 3:36 PM PATIENT IDENTITY VERIFICATION COMPLETED USING TWO (2) IDENTIFIERS: Name and Date of confirmed by patient verbally. FALL SCREENING: Has the patient had 2 falls in the last year or 1 fall with injury or currently using an Ambulatory Assistive Device (Walker, Cane, Wheelchair, Crutches, etc.)? No PATIENT GENDER DATA: Female. status: : No status: NO. PATIENT RELEVANT IMPLANT DATA REVIEWED: Not Applicable RADIOLOGY DEPARTMENT: General X-ray: Exam(s) Completed: Upper Extremity X-Ray(s): Fingers/Thumb, left : PERIPHERAL IV DATA: Not applicable SIGNED BY: RT Joshua July 30, 2020 3:36 PM documented in this encounter [facility] Evaluation note Diagnosis Encounter for immunization- Primary Need for other specified prophylactic vaccination against single bacterial disease [facility] Diagnosis Encounter for routine child health examination w/o abnormal findings- Primary Routine or child health check documented in this encounter [facility] note* Diagnosis Encounter for gynecological examination (general) (routine) without abnormal findings- Primary Encounter for surveillance of contraceptive pills Surveillance of previously prescribed contraceptive pill documented in this encounter [facility] note* Diagnosis Encounter for gynecological examination (general) (routine) without abnormal findings- Primary Encounter for surveillance of contraceptive pills Surveillance of previously prescribed contraceptive pill [facility] Diagnosis Finger injury, left, initial encounter [facility] Diagnosis Encounter for gynecological examination (general) (routine) without abnormal findings- Primary Encounter for initial prescription of contraceptive pills General counseling for prescription of oral contraceptives documented in this encounter [facility] Summary Purpose Family History No Family History Records FoundNo Family History Records Found Advance Directives No Advanced Directives Records FoundNo Advanced Directives Records Found Additional Source Comments INFORMATION SOURCE (unrecogn ized section and content) DATE CREATED AUTHOR 07/04/2019 [facility] DATE CREATED AUTHOR AUTHOR'S ORGANIZ ATION 08/19/2024 [facility] Source Comments (unrecognize d section and content) In the event this informatio n is protected by the Federal Confidentiality of Alcohol and Drug Abuse Patient Records regulations: The Federal rules restrict any use of the information to criminally investigate or prosecute any alcohol or drug abuse patient.[facility] the event this information is protected by the Federal Confidentiality of Alcohol and Drug Abuse Patient Records regulations: The Federal rules restrict any use of the information to criminally investigate or prosecute any alcohol or drug abuse patient.[facility] the event this information is protected by the Federal Confidentiality of Alcohol and Drug Abuse Patient Records regulations: The Federal rules restrict any use of the information to criminally investigate or prosecute any alcohol or drug abuse patient.[facility] the event this information is protected by the Federal Confidentiality of Alcohol and Drug Abuse Patient Records regulations: The Federal rules restrict any use of the information to criminally investigate or prosecute any alcohol or drug abuse patient.[facility] the event this information is protected by the Federal Confidentiality of Alcohol and Drug Abuse Patient Records regulations: The Federal rules restrict any use of the information to criminally investigate or prosecute any alcohol or drug abuse patient.[facility] the event this information is protected by the Federal Confidentiality of Alcohol and Drug Abuse Patient Records regulations: The Federal rules restrict any use of the information to criminally investigate or prosecute any alcohol or drug abuse patient.[facility] SystemIn the event this information is protected by the Federal Confidentiality of Alcohol and Drug Abuse Patient Records regulations: The Federal rules restrict any use of the information to criminally investigate or prosecute any alcohol or drug abuse patient.[facility] SystemIn the event this information is protected by the Federal Confidentiality of Alcohol and Drug Abuse Patient Records regulations: The Federal rules restrict any use of the information to criminally investigate or prosecute any alcohol or drug abuse patient.[facility] SystemIn the event this information is protected by the Federal Confidentiality of Alcohol and Drug Abuse Patient Records regulations: The Federal rules restrict any use of the information to criminally investigate or prosecute any alcohol or drug abuse patient.[facility] SystemIn the event this information is protected by the Federal Confidentiality of Alcohol and Drug Abuse Patient Records regulations: The Federal rules restrict any use of the information to criminally investigate or prosecute any alcohol or drug abuse patient.[facility] Reason for Visit (unrecogniz ed section and content) Reason Comments Imm/Inj Reason Onset Date Comments Refill Request 03/31/2022 Reason Comments Well Child Reason Onset Date Comments Refill Request 10/03/2022 Reason Comments Yearly Exam Reason Onset Date Comments Refill Request 07/29/2024 Reason Comments Well Woman Care Teams (unrecognized sec tion and content) Child Psychologist Relationship Specialty Start Date End Date Omar Hopper MD [address] [place] [address] PCP - General Pediatrics 04/27/11 Child Psychologist Relationship Specialty Start Date End Date Omar Hopper MD [address] [place] [address] PCP - General Pediatrics 04/27/11 Child Psychologist Relationship Specialty Start Date End Date Omar Hopper MD [address] [place] [address] PCP - General Pediatrics 04/27/11 Child Psychologist Relationship Specialty Start Date End Date Omar Hopper MD [address] [place] [address] PCP - General Pediatrics 04/27/11 Child Psychologist Relationship Specialty Start Date End Date Omar Hopper MD [address] [place], [place] [id number] PCP - General Pediatrics 04/27/11 Child Psychologist Relationship Specialty Start Date End Date Omar Hopper MD [address] [place], [place] [id number] PCP - General Pediatrics 04/27/11 Child Psychologist Relationship Specialty Start Date End Date Omar Hopper MD [address] [place], [place] [id number] PCP - General Pediatrics 04/27/11 FOR RECORDS PERTAINING TO PATIENTS WHO ARE OR HAVE BEEN ENROLLED IN A CHEMICAL DEPENDENCY/SUBSTANCEABUSE PROGRAM, SOME INFORMATION MAY BE OMITTED. This clinical summary was aggregated from multiple sources. Caution should be exercised in using it in the provision of clinical care. This summary normalizes information from multiple sources, and as a consequence, information in this document may materially change the coding, format and clinical context of patient data. In addition, data may be omitted in some cases. CLINICAL DECISIONS SHOULD BE BASED ON THE PRIMARY CLINICAL RECORDS. [facility]. provides no warranty or guarantee of the accuracy or completeness of information in this document.
[2024-12-15 19:51] LABS: Color, Urine Straw (Yellow); Glucose, Dipstick Normal (Normal); Ketone-Dipstick 5 mg/dl (Negative); Leukocyte Esterase-Dipstick 500 /ul (Negative); Mucous, Urine 0 SEEN /hpf (<or=2+); Nitrite-Dipstick Positive (Negative); Occult Blood-Urine 25 /ul (Negative); Protein-Dipstick 30 mg/dl (Negative); Specific Gravity, Urine 1.005 (1.002-1.030); Urine Bilirubin Dipstick Negative (Negative)
[2024-12-15 19:54] LABS: Internal QC Validated? YES +Cl - CLEAR BKGD; Pregnancy, Serum, hCG Quali. NEGATIVE Negative; Record Kit Lot#, Serum Preg. 962302
[2024-12-15 19:58] LABS: Red Blood Cells-Urine 5-10 SEEN /hpf (0-5); Squamous Epithelial Cells - UA 0-5 SEEN /hpf (5-10); Transitional Epithelial - Ur 0-5 SEEN /hpf (0-5)
[2024-12-15 20:00] LABS: AST(SGOT) 18 U/L (<=31); Alanine Aminotransfer ALT/SGPT 9 U/L (<=34); Albumin, Serum 4.1 g/dL (3.5-5.0); Alkaline Phosphatase 63 U/L (35-104); Anion Gap 13 (5-15); BUN 6 mg/dL (4-19); BUN/Creat Ratio 7.3 RATIO (10-20); Calcium,Total 9.3 mg/dL (7.6-11.0); Carbon Dioxide 19.2 mmol/L (21.0-32.0); Chloride 102 mmol/L (98-108); Globulin 3.3 g/dL (2.2-4.2); Glucose 140 mg/dL (70-99); Lipase 23 U/L (13-75); Potassium 3.5 mmol/L (3.3-5.1)
--- NOTE | 2024-12-15 22:04 | ED.VIS.GI ---
HPI HPI - GI History of Present Illness Chief Complaint: Abd Pain Informant: patient Abdominal Pain/Flank Pain Onset: Today and Yesterday Context: Gradual Onset Timing: Continuous Location: Right Flank Current Severity: Mild Maximum Severity: Mild Worsened by: Nothing Relieved by: Nothing Nausea/Vomiting/Emesis GI Symptom: Negative for Nausea or Vomiting Diarrhea/Melena/Hematochezia GI Symptom: Negative for Diarrhea Associated Symptoms Associated Symptoms: Positive for Dysuria Narrative Narrative: 19-year-old female no signal past medical history developed right flank pain yesterday morning. Fever as high as 1015 with chills. Denies nausea or vomiting or diarrhea. Mild dysuria. No gross hematuria. No history of kidney stones but there is a family history her dad has kidney stones. No prior abdominal or renal surgery. Prior similar symptoms: No Recent Illness/Hospitalization: No PFSH PFSH Medical History no medical history no medical history Allergy/AdvReac Type Severity Reaction Status Date / Time No Known Allergies Allergy Verified 12/15/24 18:55 Family History no significant family his Surgical History no surgical history Social History Smoking Status: Never smoker ROS ROS ED ROS Narrative Right flank pain. Fever chills. Dysuria. Constitutional Constitutional ED: Reports chills and fever(s) ENT ENT ED: Denies ear pain Cardiovascular Cardiovascular: Denies chest pain Respiratory/Chest Respiratory/Chest: Denies cough or dyspnea Gastrointestinal Gastrointestinal: Reports abdominal pain; Denies diarrhea, nausea or vomiting Genitourinary Genitourinary ED: Reports dysuria; Denies hematuria Musculoskeletal Musculoskeletal: Reports back pain; Denies arthralgias Integumentary Denies abscess Neurologic Neurologic: Denies headache(s) Psychiatric Psychiatric: Denies anxiety Endocrine Endocrinology: Denies polydipsia Hematologic/Lymphatic Hematologic/Lymphatic: Denies easy bleeding, easy bruising or lymphadenopathy Allergic/Immunologic Allergic/Immunologic ED: Denies mouth swelling, tongue swelling or urticaria EXAM Physical Exam Narrative Exam Narrative: 19-year-old female sitting upright in bed vital signs stable afebrile does look septic toxic no acute distress. H EENT exam pupils are round reactive light. Moist mutes membranes. Neck nontender no lymphadenopathy. Lungs clear to auscultation. Heart regular rhythm no murmur. Abdomen soft nontender. Moving all 4 extremities. Back no reproducible pain. Neurologically patient is awake alert. Answer questions following commands. Skin no rashes. No edema. No petechiae or purpura. Const Vital Signs: 12/15/24 18:55 12/15/24 18:58 12/15/24 20:49 Temperature 99.9 F H 98.6 F 98.6 F Temperature Source Oral Oral Pulse Rate 132 H 80 80 Respiratory Rate 18 15 15 Blood Pressure 146/86 H 128/80 H 128/80 H Blood Pressure Mean 106 96 96 Pulse Ox 97 98 98 Oxygen Delivery Method Room Air Room Air Positive well nourished and well developed; Negative for cachectic, contractures or unkempt General Appearance ED: well developed; Negative for unkempt, cachectic, contractures or pallor Nutritional Appearance: Negative for cachectic HEENT Reports moist mucous membranes Eyes PERRL and EOMs intact bilaterally Neck no lymphadenopathy, supple and no JVD Resp normal respiratory effort and clear to auscultation bilaterally Cardio regular rate, regular rhythm, S1 normal heart sound, S2 normal heart sound and no murmurs GI non-tender, non-distended and no masses Auscultation: normoactive bowel sounds Palpation: soft; Negative for tender, guarding or rebound tenderness present Back/Spine no CVA tenderness General Back: Negative for CVA tenderness Cervical Spine: Negative for cervical spine tenderness Thoracic Spine / Upper Back: Negative for thoracic spinal tenderness Lumbar Spine / Lower Back: Negative for lumbar spinal tenderness Extremity full ROM General Extremety ED: Negative for edema or tenderness General Extremity: Negative for edema Neuro CN's II-XII intact bilaterally and moves all extremities Sensorium / Orientation: alert, oriented to person, oriented to place and oriented to time Motor Exam: strength 5/5 throughout Psych mental status grossly normal and thought process normal Appearance: Negative for unkempt Skin no wounds General Skin Exam: Negative for jaundice or pallor Lesions: no lesions Rashes: no rashes MDM MDM MDM Narrative Medical decision making narrative: 19-year-old with history of suspected UTI possible pyelonephritis. Also consider kidney stone. Screening labs and CAT scan being obtained. She did not want anything for pain or nausea. Repeat exam patient is doing well at 10:15 PM. I went over test results with patient and family. The patient's father has a history of kidney stones and sees a local urologist on page to see if he is available he may not be in town. The patient will be started on IV Rocephin and urine culture be sent. I again asked her if she did not want anything for pain nor is she having nausea. I spoke to our urologist who will accept the patient in consult. He will have the hospitalist admit. History & Record Review Discussion w/independent historian: Patient Additional record(s) reviewed:: Prior inpatient record, Prior outpatient record, Prior ED visit and Prior labs Lab Data Attestation: I reviewed the patient's lab results. Lab results narrative: CBC shows white count 12.3 H&H 11 and 33. Platelets 273. Electrolytes show a gap of 13. Normal BUN of 6 creatinine 0.7. Glucose 140. Liver enzymes normal. Lipase normal at 23. Serum test negative. Urinalysis is positive for infection with 5200 white cells. 5-10 red cells. 4+ bacteria. Positive nitrates. Culture will be sent. Labs: Laboratory Results - last 24 hr 12/15/24 12/15/24 19:34 19:43 WBC 12.3 H RBC 4.12 L Hgb 11.1 L Hct 33.5 L MCV 81.3 MCH 26.9 L MCHC 33.1 RDW Std Deviation 42.3 RDW Coeff of Solomon 14.3 Plt Count 273 MPV 9.2 Immature Gran % (Auto) 0.300 Neut % (Auto) 81.6 H Lymph % (Auto) 9.1 L [place] % (Auto) 8.8 Eos % (Auto) 0.0 Baso % (Auto) 0.2 Absolute Neuts (auto) 10.1 H Absolute Lymphs (auto) 1.12 Nucleated RBC % 0 Sodium 134 Potassium 3.5 Chloride 102 Carbon Dioxide 19.2 L Anion Gap 13 BUN 6 Creatinine 0.77 Est GFR (MDRD) Non-Af 113 BUN/Creatinine Ratio 7.3 L Glucose 140 H Calcium 9.3 Total Bilirubin 0.31 AST 18 ALT 9 Alkaline Phosphatase 63 Total Protein 7.4 Albumin 4.1 Globulin 3.3 Albumin/Globulin Ratio 1.3 Lipase 23 Serum , Qual NEGATIVE Urine Color Straw Urine Clarity Sl. Cloudy Urine pH 7.0 Ur Specific [place] 1.005 Urine Protein 30 H Urine Glucose (UA) Normal Urine Ketones 5 H Urine Occult Blood 25 H Urine Nitrite Positive H Urine Bilirubin Negative Urine Urobilinogen Normal Ur Leukocyte Esterase 500 H Urine RBC 5-10 SEEN Urine WBC 50-100 SEEN Ur Squamous Epith Cells 0-5 SEEN Ur Transition Epith Cell 0-5 SEEN Ur Renal Epithelial Cell 0-5 SEEN Urine Bacteria 4+ Urine Mucus 0 SEEN Radiography Diagnostic Testing: Clinical Impression(s) from Imaging Studies Abdomen/Pelvis CT 12/15/24 19:22 IMPRESSION: Findings of cystitis, and [id number]-left ureteritis and pyelonephritis. Additionally, there is a punctate minimally obstructing stone in the distal right ureter with associated mild right hydroureter. Reading Location: [facility] Discharge Plan Triage Chief Complaint: Abd Pain ED Provider: Mulugeta Garcia Dx/Rx/DC Orders Clinical Impression: Acute flank pain, Pyelonephritis, Calculus, ureteral Primary Care Provider: Kelsea Plummer NP Referrals: Kelsea Plummer NP, [facility] [Primary Care Provider] - Print Language: Romansh Disposition Disposition: Acute Care Hospital [facility]
[2024-12-15] MEDS: 0.9% Normal Saline (1000mL) 1,000 ML 999 ML IV (22:35)
--- NOTE | 2024-12-15 22:42 | HP.PCM.HOS_ITS ---
HPI - General General Date of Admission: 12/15/24 Date of Service: 12/15/24 Chief Complaint: Flank pain, abdominal pain, dysuria. HPI Narrative The patient is a 19 y/o F w/ PMHx: Possible chronic anemia with questionable heavy menses who presents to the [facility] ED on 12/15/2024 with onset of significant abdominal pain specifically in the right flank region gradually worsening over the last 48 hours with associated dysuria with no nausea or emesis with fevers up to 101.5 at home in addition to chills prompting ED evaluation to be cautious. Workup in the ED included T99, heart 132, BP 146/86, respiratory rate 18, 97% on room air with most recent vitals T98.6, heart rate 80, BP 120/80, respiratory rate 15, 98% on room air, CBC with WC 12.3, hemoglobin 0.1, MCV 81.3, platelet 273 with left shift, CMP with carbon oxide 19.2, anion gap 13, BUN/creatinine 6/0.77, GFR 113, glucose 140, hepatic profile unremarkable, serum testing negative, urinalysis noted to be cloudy, specific [place] 1.005, protein 30, ketone 5, occult blood 25, positive nitrite, leukocyte esterase 500, urine RBCs 5-10, urine WBCs 50-100 with 4+ urine bacteria, CT abdomen and pelvis with IV contrast with findings consistent with cystitis and a right greater than left urethritis and pyelonephritis with additionally noted punctate minimally obstructing stone in the distal right ureter with associated mild right hydroureter. In the ED patient administered 1 L normal saline and Rocephin 1 g IV x 1. ED physician did discuss case with urologist, Dr. Rutledge. [facility] Medical History (Updated 12/15/24 @ 23:[address] Alecia Shi MD) Chronic anemia Medical History no medical history Allergy/AdvReac Type Severity Reaction Status Date / Time No Known Allergies Allergy Verified 12/15/24 18:55 Family History (Updated 12/15/24 @ 23:[address] Alecia Shi MD) Father Kidney stone Mother Ovarian cancer Family History no significant family his Surgical History (Updated 12/15/24 @ 23:[address] Alecia Shi MD) S/P wisdom tooth extraction Surgical History no surgical history Social History (Updated 12/15/24 @ 23:[address] Alecia Shi MD) household members: other details: Roommates housing: other details: [facility]. Smoking Status: Never smoker alcohol intake: current alcohol intake frequency: a few times a week details: Max 1-2 drinks 2 times per week. substance use type: does not use ROS ROS Narrative Admission Review of Systems: CONSTITUTIONAL: No weight loss, + fever, chills, weakness or fatigue. HEENT: Eyes: No visual loss, blurred vision, double vision or yellow sclerae. Ears, Nose, Throat: No hearing loss, sneezing, congestion, runny nose or sore throat. SKIN: No rash or itching, lesions, wounds. CARDIOVASCULAR: No chest pain, chest pressure or chest discomfort, palpitations, edema, orthopnea, syncopal events. RESPIRATORY: No shortness of breath, cough or sputum, wheezing, hemoptysis. GASTROINTESTINAL: + anorexia, right flank pain/abdominal pain. No nausea, vomiting or diarrhea, melena, BRBPR. GENITOURINARY: + Dysuria, right flank pain. No frequency, urgency or retention. NEUROLOGICAL: No headache, dizziness, syncope, paralysis, ataxia, numbness or tingling in the extremities, focal weakness, change in bowel or bladder control, seizure. MUSCULOSKELETAL: + muscle, back pain, joint pain or stiffness. HEMATOLOGIC: + Current presentation with evidence of anemia, no specific prior history but no marked lab trending available, no marked history of bleeding/bruising. LYMPHATICS: No enlarged nodes. No history of splenectomy. PSYCHIATRIC: No history of depression or anxiety. ENDOCRINOLOGIC: No reports of sweating, cold or heat intolerance. No polyuria or polydipsia. ALLERGIES: No history of asthma, hives, eczema or rhinitis. Vital Signs Vital Signs Vital Signs: 12/15/24 18:55 12/15/24 18:58 12/15/24 20:49 Temperature 99.9 F H 98.6 F 98.6 F Temperature Source Oral Oral Pulse Rate 132 H 80 80 Respiratory Rate 18 15 15 Blood Pressure 146/86 H 128/80 H 128/80 H Blood Pressure Mean 106 96 96 Pulse Ox 97 98 98 Oxygen Delivery Method Room Air Room Air 12/15/24 22:00 12/15/24 22:38 Temperature 100.6 F H 100.6 F H Temperature Source Oral Pulse Rate 95 95 Respiratory Rate 16 Blood Pressure 118/70 118/70 Blood Pressure Mean 86 86 Pulse Ox 99 99 Oxygen Delivery Method Physical Exam Narrative Physical Examination: General: Awake, alert, oriented x 3 and cooperative, seated upright in ED bed, fatigued, no acute distress. Skin: Normal color, normal turgor, no icterus, no cyanosis. HEENT: AT/NC, EOMI, PERRLA, mildly dry MM, no carotid bruits or JVD noted. Lungs: CTA bilaterally, moderate effort, mild decrease BL bases, no rales, ronchi or wheezing. Heart: Tachycardic with regular rhythm; no gallop, rub audible. Abdomen: Soft, discomfort to palpation of the right abdomen as well as right flank, ND, mildly hyperactive BS, no appreciated HSM. Extremities: No cyanosis, clubbing, or edema. Neurological: Patient awake, alert, oriented as noted, cognitive function intact; pupils equally reactive to light and accommodation, cranial nerves grossly normal, moving all 4 extremities, no focal deficits, strength mildly to moderately global decrease secondary to acute presentation Psychiatric: Affect appears fatigued, mildly uncomfortable, no acute evidence of depressive or anxiety feelings. Results Lab / Micro Data 12/15/24 19:34 12/15/24 19:34 Labs: Laboratory Results - last 24 hr 12/15/24 19:34: WBC 12.3 H, RBC 4.12 L, Hgb 11.1 L, Hct 33.5 L, MCV 81.3, MCH 26.9 L, MCHC 33.1, RDW Std Deviation 42.3, RDW Coeff of Solomon 14.3, Plt Count 273, MPV 9.2, Immature Gran % (Auto) 0.300, Neut % (Auto) 81.6 H, Lymph % (Auto) 9.1 L, [place] % (Auto) 8.8, Eos % (Auto) 0.0, Baso % (Auto) 0.2, Absolute Neuts (auto) 10.1 H, Absolute Lymphs (auto) 1.12, Nucleated RBC % 0, Sodium 134, Potassium 3.5, Chloride 102, Carbon Dioxide 19.2 L, Anion Gap 13, BUN 6, Creatinine 0.77, Est GFR (MDRD) Non-Af 113, BUN/Creatinine Ratio 7.3 L, Glucose 140 H, Calcium 9.3, Total Bilirubin 0.31, AST 18, ALT 9, Alkaline Phosphatase 63, Total Protein 7.4, Albumin 4.1, Globulin 3.3, Albumin/Globulin Ratio 1.3, Lipase 23, Serum , Qual NEGATIVE 12/15/24 19:43: Urine Color Straw, Urine Clarity Sl. Cloudy, Urine pH 7.0, Ur Specific [place] 1.005, Urine Protein 30 H, Urine Glucose (UA) Normal, Urine Ketones 5 H, Urine Occult Blood 25 H, Urine Nitrite Positive H, Urine Bilirubin Negative, Urine Urobilinogen Normal, Ur Leukocyte Esterase 500 H, Urine RBC 5-10 SEEN, Urine WBC 50-100 SEEN, Ur Squamous Epith Cells 0-5 SEEN, Ur Transition Epith Cell 0-5 SEEN, Ur Renal Epithelial Cell 0-5 SEEN, Urine Bacteria 4+, Urine Mucus 0 SEEN Imaging Radiology Impression Abdomen/Pelvis CT 12/15/24 19:22 IMPRESSION: Findings of cystitis, and [id number]-left ureteritis and pyelonephritis. Additionally, there is a punctate minimally obstructing stone in the distal right ureter with associated mild right hydroureter. Reading Location: [id number] Assessment & Plan Assessment/Plan (1) Pyelonephritis: (2) Calculus, ureteral: PLAN: Plan The patient is a 19 y/o F w/ PMHx: Possible chronic anemia with questionable heavy menses who presents to the [facility] ED on 12/15/2024 with onset of significant abdominal pain specifically in the right flank region gradually worsening over the last 48 hours with associated dysuria with no nausea or emesis with fevers up to 101.5 at home in addition to chills prompting ED evaluation to be cautious. #1. Acute Complicated Pyelonephritis with minimally obstructing stone in the distal right ureter with associated mild right hydroureter: Will admit to [facility] upon ED evaluation remarkable, pending UCx, continue IVFs, monitor I/Os, continue IV Rocephin w/ transition as able pending sensitivities and speciation. Given stone size at this point low suspicion for need for intervention, however ED did discuss case given findings with urologist Dr. Ya, therefore consultation will be continued. #2. Elevated BP without hypertensive diagnosis: BP upon ED arrival initially elevated, likely secondary to acute presentation #1 and pain, improved without intervention, continue to monitor and add regimen if becomes clinically appropriate. #3. Appearance of new onset normocytic anemia, unclear exact chronicity timeline corbin; however patient does report knowing potentially history of chronic anemia with potentially heavy menses but uncertain: Admission hemoglobin 11.1, MCV 81.3, only remote labs and at that point she has not been anemic, will continue to trend CBC and if necessary will further investigate. Encouraged continued follow-up outpatient with primary care physician. #4. Hyperglycemia without diabetic history: Admission glucose 140, suspect likely stress response to acute presentation as noted above #1 however if remains elevated low threshold to further investigate. #5. DVT prophylaxis: Lovenox. Charges/Coding Visit Charges Inpatient E&M: 94899 Init Hosp L2
--- OUTSIDE RECORDS SUMMARY | 2024-12-15 23:03 | XMS RPT_ITS | CCD ---
Author Organization [facility] Care Team Providers Care Tent Finisher Name Role Phone Willina BELTRAN, Omar Foreman Primary Care Provider KHADIJAH MATAMOROS Attending Unavailable OMAR HOPPER Primary Care Unavailable Mulugeta Garcia Attending Unavailable Kelsea Plummer Primary Care Unavailable Medications Current Medications Medication Drug Class(es) Dates Sig (Normalized) Sig (Original) Ascorbic Fjdm-Wlffkmvbd-Zkq (EMERGEN-C) 1,000 mg pwep (7 sources) Ascorbic Hukd-Gmkfqepnp-Tvr (EMERGEN-C) 1,000 mg pwep Take by mouth. [...] Name Value Interpretation Reference Range Facil ity Abdomen/Pelvis W IV Cont ONL Yon 12-15-2024 Abdomen/Pelvis W IV Cont ONLY [facility] Imaging Services [address] [place] [address] Abdomen/Pelvis W IV Cont ONLY MR#: [id number] Acct: [id number] Name: JUSTINE TURNER Rep #: [id number] : 2005 F 19 From: Jj Brasher MD PCP: JESSICA LeeC Status: REG ER Study: Abdomen/Pelvis W IV Cont ONLY Date of Exam: Exam# [id number] Ordering Dr: Mulugeta Garcia MD PROCEDURE: CT ABDOMEN/PELVIS W IV CONT ONLY 12/15/2024 REASON FOR EXAM: RIGHT FLANK AND RIGHT LOWER QUADRANT PAIN. TECHNIQUE: Procedure Code: CTABDPELIV Modality: CT Procedure: ABDOMEN/PELVIS W IV CONT ONLY Coronal and Sagittal reconstruction series were provided. One or more dose reduction techniques were used (e.g., Automated exposure control, adjustment of the mA and/or kV according to patient size, use of iterative reconstruction technique. RADIATION DOSE SUMMARY: DLP: 568.3 mGycm COMPARISON: None. FINDINGS: Lung bases: Clear. Liver: Unremarkable. Gallbladder: Unremarkable. Spleen: Unremarkable. Pancreas: Unremarkable. Adrenals: Unremarkable. Kidneys/Bladder: Bilateral multifocal patchy areas of cortical renal hypo enhancement, more pronounced on the right compatible with acute pyelonephritis. Uudsj-zmlsqty-xywe-le ft urothelial enhancement consistent with ascending ureteritis/pyelitis. Urinary bladder is underdistended but there is circumferential wall thickening compatible with cystitis. Additionally, there is a tiny 1-2 mm minimally obstructive stone in the distal right ureter just proximal to the ureterovesicular junction, with associated mild right hydroureter. Reproductive Organs: Unremarkable. Bowel: Unremarkable. No obstruction or active inflammation. Normal appendix. Lymph nodes: No suspicious lymph node enlargement. Vasculature: Major vascular structures are patent, normal in course and caliber. Peritoneum / Retroperitoneum: No ascites or free air. Bones: Unremarkable. CT/Abdomen/Pelvis W IV Cont ONLY IMPRESSION: Findings of cystitis, and ldgnv-mheawnb-azwx-le ft ureteritis and pyelonephritis. Additionally, there is a punctate minimally obstructing stone in the distal right ureter with associated mild right hydroureter. Reading Location: [id number] CC: OLIVE Plummer; Dr. Mulugeta Garcia MD Development Planner: Signed Normal [facility] CBC W/Diff, Automatedon 09-0 Absolute Lymph 1.12 X10 3/uL Normal 0.83-4.51 [facility] Comment on above: Performed By: #### L 100.0100, L700.6800, L500.4050, L501.2450 #### [facility] [address] [place], [address] Absolute Neut 10.1 X10 3/uL High 2.0-7.7 [facility] Comment on above: Performed By: #### L 100.0100, L700.6800, L500.4050, L501.2450 #### [facility] [address] [place], [address] Basophils/100 WBC (Bld) 0.2 % Normal 0-1 [facility] Comment on above: Performed By: #### L 100.0100, L700.6800, L500.4050, L501.2450 #### [facility] [address] [place], [address] Eosinophils/100 WBC (Bld) 0.0 % Normal 0-5 [facility] Comment on above: Performed By: #### L 100.0100, L700.6800, L500.4050, L501.2450 #### [facility] [address] [place], [address] Erythrocyte distribution width (RBC) [Ratio] 14.3 % Normal 11.6-14.6 [facility] Comment on above: Performed By: #### L 100.0100, L700.6800, L500.4050, L501.2450 #### [facility] [address] [place], [address] Hematocrit (Bld) [Volume fraction] 33.5 % Low 37-47 [facility] Comment on above: Performed By: #### L 100.0100, L700.6800, L500.4050, L501.2450 #### [facility] [address] [place], [address] Hemoglobin (Bld) [Mass/Vol] 11.1 g/dL Low 12.0-15.0 [facility] Comment on above: Performed By: #### L 100.0100, L700.6800, L500.4050, L501.2450 #### [facility] [address] [place], [address] IG% 0.300 Normal 0.0-0.9 [facility] Comment on above: Result Comment: IG% - Immature Granulocytes (promyelocytes, myelocytes and metamyelocytes) > 1% indicates that a LEFT SHIFT is Present. Performed By: #### L 100.0100, L700.6800, L500.4050, L501.2450 #### [facility] [address] [place], [address] Lymphocytes/100 WBC (Bld) 9.1 % Low 19-41 [facility] Comment on above: Performed By: #### L 100.0100, L700.6800, L500.4050, L501.2450 #### [facility] [address] [place], [address] MCH (RBC) [Entitic mass] 26.9 pg Low 27.0-32.0 [facility] Comment on above: Performed By: #### L 100.0100, L700.6800, L500.4050, L501.2450 #### [facility] [address] [place], [address] MCHC (RBC) [Mass/Vol] 33.1 g/dL Normal 32-36 [facility] Comment on above: Performed By: #### L 100.0100, L700.6800, L500.4050, L501.2450 #### [facility] [address] [place], [address] MCV (RBC) [Entitic vol] 81.3 fL Normal 81-99 [facility] Comment on above: Performed By: #### L 100.0100, L700.6800, L500.4050, L501.2450 #### [facility] [address] [place], [address] Monocytes/100 WBC (Bld) 8.8 % Normal 0-10 [facility] Comment on above: Performed By: #### L 100.0100, L700.6800, L500.4050, L501.2450 #### [facility] [address] [place], [address] Neutrophils/100 WBC (Bld) 81.6 % High 47-70 [facility] Comment on above: Performed By: #### L 100.0100, L700.6800, L500.4050, L501.2450 #### [facility] [address] [place], [address] Nucleated RBC (Bld) [#/Vol] 0 10*3/uL Normal 0-5 [facility] Comment on above: Performed By: #### L 100.0100, L700.6800, L500.4050, L501.2450 #### [facility] [address] [place], [address] Platelet mean volume (Bld) [Entitic vol] 9.2 fL Normal 6.2-12.0 [facility] Comment on above: Performed By: #### L 100.0100, L700.6800, L500.4050, L501.2450 #### [facility] [address] [place], [address] Platelets (Bld) [#/Vol] 273 10*3/uL Normal 150-450 [facility] Comment on above: Performed By: #### L 100.0100, L700.6800, L500.4050, L501.2450 #### [facility] [address] [place], [address] RBC (Bld) [#/Vol] 4.12 10*6/uL Low 4.2-5.4 [facility] Comment on above: Performed By: #### L 100.0100, L700.6800, L500.4050, L501.2450 #### [facility] [address] [place], [address] RDW SD 42.3 fl Normal 35.1-43.9 [facility] Comment on above: Performed By: #### L 100.0100, L700.6800, L500.4050, L501.2450 #### [facility] [address] [place], [address] WBC (Bld) [#/Vol] 12.3 10*3/uL High 4.4-11.0 [facility] Comment on above: Performed By: #### L 100.0100, L700.6800, L500.4050, L501.2450 #### [facility] [address] [place], [address] Comprehensive Metabolic Prof michael 12-15-2024 Albumin [Mass/Vol] 4.1 g/dL Normal 3.5-5.0 [facility] Comment on above: Performed By: #### L 100.0100, L700.6800, L500.4050, L501.2450 #### [facility] [address] [place], [address] Albumin/Globulin [Mass ratio] 1.3 {ratio} Normal 0.9-2.4 [facility] Comment on above: Performed By: #### L 100.0100, L700.6800, L500.4050, L501.2450 #### [facility] [address] [place], [address] ALK PHOS 63 U/L Normal 35-104 [facility] Comment on above: Performed By: #### L 100.0100, L700.6800, L500.4050, L501.2450 #### [facility] [address] [place], [address] ALT [Catalytic activity/Vol] 9 U/L Normal <=34 [facility] Comment on above: Performed By: #### L 100.0100, L700.6800, L500.4050, L501.2450 #### [facility] [address] [place], [address] AST [Catalytic activity/Vol] 18 U/L Normal <=31 [facility] Comment on above: Performed By: #### L 100.0100, L700.6800, L500.4050, L501.2450 #### [facility] [address] [place], [address] Bilirubin [Mass/Vol] 0.31 mg/dL Normal 0.00-1.30 [facility] Comment on above: Performed By: #### L 100.0100, L700.6800, L500.4050, L501.2450 #### [facility] [address] [place], [address] BUN/CRE 7.3 RATIO Low 10-20 [facility] Comment on above: Performed By: #### L 100.0100, L700.6800, L500.4050, L501.2450 #### [facility] [address] [place], [address] Calcium [Mass/Vol] 9.3 mg/dL Normal 7.6-11.0 [facility] Comment on above: Performed By: #### L 100.0100, L700.6800, L500.4050, L501.2450 #### [facility] [address] [place], [address] Chloride [Moles/Vol] 102 mmol/L Normal 98-108 [facility] Comment on above: Performed By: #### L 100.0100, L700.6800, L500.4050, L501.2450 #### [facility] [address] [place], [address] CO2 [Moles/Vol] 19.2 mmol/L Low 21.0-32.0 [facility] Comment on above: Performed By: #### L 100.0100, L700.6800, L500.4050, L501.2450 #### [facility] [address] [place], [address] Creatinine [Mass/Vol] 0.77 mg/dL Normal 0.70-1.20 [facility] Comment on above: Performed By: #### L 100.0100, L700.6800, L500.4050, L501.2450 #### [facility] [address] [place], [address] GAP 13 Normal 5-15 [facility] Comment on above: Performed By: #### L 100.0100, L700.6800, L500.4050, L501.2450 #### [facility] [address] [place], [address] GFR/1.73 sq M.predicted among non-blacks MDRD (S/P/Bld) [Vol rate/Area] 113 mL/min/{1.73_m2} Normal >60 [facility] Comment on above: Result Comment: mL/m in/1.73m2 CKD-EPI Creatinine Equation (2020) Performed By: #### L 100.0100, L700.6800, L500.4050, L501.2450 #### [facility] [address] [place], [address] Globulin (S) [Mass/Vol] 3.3 g/dL Normal 2.2-4.2 [facility] Comment on above: Performed By: #### L 100.0100, L700.6800, L500.4050, L501.2450 #### [facility] [address] [place], [address] Glucose [Mass/Vol] 140 mg/dL High 70-99 [facility] Comment on above: Performed By: #### L 100.0100, L700.6800, L500.4050, L501.2450 #### [facility] [address] [place], [address] Potassium [Moles/Vol] 3.5 mmol/L Normal 3.3-5.1 [facility] Comment on above: Performed By: #### L 100.0100, L700.6800, L500.4050, L501.2450 #### [facility] [address] [place], [address] Sodium [Moles/Vol] 134 mmol/L Normal 133-145 [facility] Comment on above: Performed By: #### L 100.0100, L700.6800, L500.4050, L501.2450 #### [facility] [address] [place], [address] T PROT 7.4 g/dL Normal 5.9-8.4 [facility] Comment on above: Performed By: #### L 100.0100, L700.6800, L500.4050, L501.2450 #### [facility] [address] [place], [address] Urea nitrogen [Mass/Vol] 6 mg/dL Normal 4-19 [facility] Comment on above: Performed By: #### L 100.0100, L700.6800, L500.4050, L501.2450 #### [facility] [address] [place], [address] Emergency Department Summary on 12-15-2024 Emergency Department Summary [facility] Medical Records Department [address] [place] [address] Emergency Department Summary 12/15/24 MR#: [id number] Acct: [id number] Name: JUSTINE TURNER Rep #: [id number] : 2005 19 From: Mulugeta Garcia MD PCP: OLIVE Lee Status:REG ER Location: ED HPI HPI - GI History of Present Illness Chief Complaint: Abd Pain Informant: patient Abdominal Pain/Flank Pain Onset: Today and Yesterday Context: Gradual Onset Timing: Continuous Location: Right Flank Current Severity: Mild Maximum Severity: Mild Worsened by: Nothing Relieved by: Nothing Nausea/Vomiting/Emesi s GI Symptom: Negative for Nausea or Vomiting Diarrhea/Melena/Hemat ochezia GI Symptom: Negative for Diarrhea Associated Symptoms Associated Symptoms: Positive for Dysuria Narrative Narrative: 19-year-old female no signal past medical history developed right flank pain yesterday morning. Fever as high as 1015 with chills. Denies nausea or vomiting or diarrhea. Mild dysuria. No gross hematuria. No history of kidney stones but there is a family history her dad has kidney stones. No prior abdominal or renal surgery. Prior similar symptoms: No Recent Illness/Hospitalizati on: No PFSH PFSH Medical History no medical history no medical history Allergy/AdvReac Type Severity Reaction Status Date / Time No Known Allergies Allergy Verified 12/15/24 18:55 Family History no significant family his Surgical History no surgical history Social History Smoking Status: Never smoker ROS ROS ED ROS Narrative Right flank pain. Fever chills. Dysuria. Constitutional Constitutional ED: Reports chills and fever(s) ENT ENT ED: Denies ear pain Cardiovascular Cardiovascular: Denies chest pain Respiratory/Chest Respiratory/Chest: Denies cough or dyspnea Gastrointestinal Gastrointestinal: Reports abdominal pain; Denies diarrhea, nausea or vomiting Genitourinary Genitourinary ED: Reports dysuria; Denies hematuria Musculoskeletal Musculoskeletal: Reports back pain; Denies arthralgias Integumentary Denies abscess Neurologic Neurologic: Denies headache(s) Psychiatric Psychiatric: Denies anxiety Endocrine Endocrinology: Denies polydipsia Hematologic/Lymphatic Hematologic/Lymphatic : Denies easy bleeding, easy bruising or lymphadenopathy Allergic/Immunologic Allergic/Immunologic ED: Denies mouth swelling, tongue swelling or urticaria EXAM Physical Exam Narrative Exam Narrative: 19-year-old female sitting upright in bed vital signs stable afebrile does look septic toxic no acute distress. H EENT exam pupils are round reactive light. Moist mutes membranes. Neck nontender no lymphadenopathy. Lungs clear to auscultation. Heart regular rhythm no murmur. Abdomen soft nontender. Moving all 4 extremities. Back no reproducible pain. Neurologically patient is awake alert. Answer questions following commands. Skin no rashes. No edema. No petechiae or purpura. Const Vital Signs: 12/15/24 18:55 12/15/24 18:58 12/15/24 20:49 Temperature 99.9 F H 98.6 F 98.6 F Temperature Source Oral Oral Pulse Rate 132 H 80 80 Respiratory Rate 18 15 15 Blood Pressure 146/86 H 128/80 H 128/80 H Blood Pressure Mean 106 96 96 Pulse Ox 97 98 98 Oxygen Delivery Method Room Air Room Air Positive well nourished and well developed; Negative for cachectic, contractures or unkempt General Appearance ED: well developed; Negative for unkempt, cachectic, contractures or pallor Nutritional Appearance: Negative for cachectic HEENT Reports moist mucous membranes Eyes PERRL and EOMs intact bilaterally Neck no lymphadenopathy, supple and no JVD Resp normal respiratory effort and clear to auscultation bilaterally Cardio regular rate, regular rhythm, S1 normal heart sound, S2 normal heart sound and no murmurs GI non-tender, non-distended and no masses Auscultation: normoactive bowel sounds Palpation: soft; Negative for tender, guarding or rebound tenderness present Back/Spine no CVA tenderness General Back: Negative for CVA tenderness Cervical Spine: Negative for cervical spine tenderness Thoracic Spine / Upper Back: Negative for thoracic spinal tenderness Lumbar Spine / Lower Back: Negative for lumbar spinal tenderness Extremity full ROM General Extremety ED: Negative for edema or tenderness General Extremity: Negative for edema Neuro CN's II-XII intact bilaterally and moves all extremities Sensorium / Orientation: alert, oriented to person, oriented to place and oriented to time Motor Exam: strength 5/5 throughout Psych mental status grossly normal and thought process normal Appearance: Negative for unkempt Skin no wounds General Skin Exam: Negative for jaundice or pallo (more content not included)... Normal [facility] Lipaseon 12-15-2024 Lipase [Catalytic activity/Vol] 23 U/L Normal 13-75 [facility] Comment on above: Result Comment: Pamela barrett note: LIPASE revised reference range effective 22. New Lipase methodology. Expected to produce lower values than the previous assay method. NEW Reference Range: 13 - 75 U/L Performed By: #### L 100.0100, L700.6800, L500.4050, L501.2450 #### [facility] [address] [place], [address] ,Serum,hCG Quali.on 12-15-2024 HCG, SERUM QUAL Negative Normal [facility] Comment on above: Performed By: #### L 100.0100, L700.6800, L500.4050, L501.2450 #### [facility] [address] [place], [place], [id number] Urinalysis, Completeon 12-15 BACTERIA 4+ /hpf Normal None Seen [facility] Comment on above: Order Comment: CLEAN CATCH Performed By: #### L 400.0001 #### [facility] [address] [place], [address] EPI,RENAL 0-5 SEEN Normal 0-5 [facility] Comment on above: Order Comment: CLEAN CATCH Performed By: #### L 400.0001 #### [facility] [address] [place], [address] EPI,SQUAMOUS 0-5 SEEN Normal 5-10 [facility] Comment on above: Order Comment: CLEAN CATCH Performed By: #### L 400.0001 #### [facility] [address] [place], [address] EPI,TRANSITION 0-5 SEEN Normal 0-5 [facility] Comment on above: Order Comment: CLEAN CATCH Performed By: #### L 400.0001 #### [facility] [address] [place], [address] RBC 5-10 SEEN Normal 0-5 [facility] Comment on above: Order Comment: CLEAN CATCH Performed By: #### L 400.0001 #### [facility] [address] [place], [address] WBC 50-100 SEEN Normal 0-5 [facility] Comment on above: Order Comment: CLEAN CATCH Performed By: #### L 400.0001 #### [facility] [address] [place], [address] Mucus Ql (Urine sed) 0 SEEN Normal [facility] Comment on above: Order Comment: CLEAN CATCH Performed By: #### L 400.0001 #### [facility] [address] [place], [place], [id number] CNOVon 07-30-2024 CNOV Office Visit (OBGYWM ) JUSTINE TURNER ([id number]) 3 F Date Time Provider Department 07/30/24 11:15 AM KHADIJAH MATAMOROS During your visit today, we recorded the following information about you: Blood pressure Weight Height 110/64 64 kg 1.6 m Khadijah Matamoros APRN.PATTERN PERFORATING MACHINE OPERATOR 07/30/2024 11:15 AM Signed Justine is a 19 year old who presents for an annual gynecologic exam without complaints. 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 [...] Living0 SAB0 IAB0 Ectopic0 Multiple0 Live Births0 Triple Valve Mechanic History LMP: 07/05/2024, Having periods Age at Menarche: 11 Age at First : Age at Menopause: Triple Valve Mechanic History Comments: Sexual Activity: Yes; Male Contraception: [...] year or sooner as needed. Khadijah Matamoros APRN.Khadijah Hall APRN.CNP 07/30/2024 11:07 AM Signed Oral Contraceptives: [...] These are formulated to give you a orchestra director period. First day of next menstrual period [...] on or (more content not included)... Normal [facility] XR Finger - left AP and Late ral and obliqueon 07-30-2020 IMPRESSION: Soft tissue swelling, but no fracture. Development Planner: BI Transcribe Date/Time: Jul 30 2020 3:37P Dictated by : SHERIN ADAMS MD This examination was interpreted and the report reviewed and electronically signed by: SHERIN ADAMS MD on Jul 30 2020 3:39PM [facility] DIVISION OF RADIOLOGY * * *Final [...] OTHER FINDINGS: None. DIVISION OF RADIOLOGY Provider, [facility] - 07/30/2020 * * *Final Report* * [...] IMPRESSION: Soft tissue swelling, but no fracture. Development Planner: BI Transcribe Date/Time: Jul 30 2020 3:37P Dictated by : SHERIN ADAMS MD This examination was interpreted and the report reviewed and electronically signed by: SHERIN ADAMS MD on Jul 30 2020 3:39PM EST [facility] Radiology Study observation (narrative) [facility] XR Finger - left AP and Late ral and obliqueOrdered By: Ccf Provider on 07-30-2020 [facility] Vital Signs Date Time Vital Sign Value Performing Clinician Jamar farias 07-30-2024 10:52-0400 Body height 160 cm Khadijah Matamoros APRN.PATTERN PERFORATING MACHINE OPERATOR Work Phone: [facility] 07-30-2024 10:52-0400 Body mass index (BMI) [Ratio] 24.98 kg/m2 Khadijah Matamoros APRN.PATTERN PERFORATING MACHINE OPERATOR Work Phone: [facility] 07-30-2024 10:52-0400 Body weight 63.96 kg Khadijah Matamoros APRN.PATTERN PERFORATING MACHINE OPERATOR Work Phone: [facility] 07-30-2024 10:52-0400 Diastolic blood pressure 64 mm[Hg] Khadijah Matamoros APRN.PATTERN PERFORATING MACHINE OPERATOR Work Phone: [facility] 07-30-2024 10:52-0400 Systolic blood pressure 110 mm[Hg] Khadijah Matamoros APRN.PATTERN PERFORATING MACHINE OPERATOR Work Phone: [facility] 07-17-2023 10:26-0400 Body weight 70.13 kg Kelsea Vegasf EXHIBIT DESIGNER.PATTERN PERFORATING MACHINE OPERATOR Work Phone: [facility] 07-17-2023 10:26-0400 Diastolic blood pressure 82 mm[Hg] Kelsea Godwin EXHIBIT DESIGNER.PATTERN PERFORATING MACHINE OPERATOR Work Phone: [facility] 07-17-2023 10:26-0400 Systolic blood pressure 120 mm[Hg] Kelsea Godwin EXHIBIT DESIGNER.PATTERN PERFORATING MACHINE OPERATOR Work Phone: [facility] 10-19-2022 08:37-0400 Body height 160.7 cm Kelsea Elian EXHIBIT DESIGNER.PATTERN PERFORATING MACHINE OPERATOR Work Phone: [facility] 10-19-2022 08:37-0400 Body mass index (BMI) [Percentile] Per age and sex 76.17 % Kelsea Elian EXHIBIT DESIGNER.PATTERN PERFORATING MACHINE OPERATOR Work Phone: [facility] 10-19-2022 08:37-0400 Body weight 62.32 kg Kelsea Elian EXHIBIT DESIGNER.PATTERN PERFORATING MACHINE OPERATOR Work Phone: [facility] 10-19-2022 08:37-0400 Diastolic blood pressure 60 mm[Hg] Kelsea Elian EXHIBIT DESIGNER.PATTERN PERFORATING MACHINE OPERATOR Work Phone: [facility] 10-19-2022 08:37-0400 Systolic blood pressure 100 mm[Hg] Kelsea Godwin EXHIBIT DESIGNER.PATTERN PERFORATING MACHINE OPERATOR Work Phone: [facility] 04-03-2022 08:30-0500 Body height 161 cm Omar Hopper MD Work Phone: [facility] 04-03-2022 08:30-0500 Body mass index (BMI) [Percentile] Per age and sex 82.31 % Omar Hopper MD Work Phone: [facility] 04-03-2022 08:30-0500 Body temperature 98.4 [degF] Omar Hopper MD Work Phone: [facility] 04-03-2022 08:30-0500 Body weight 64.86 kg Omar Hopper MD Work Phone: [facility] 04-03-2022 08:30-0500 Diastolic blood pressure 72 mm[Hg] Omar Hopper MD Work Phone: [facility] 04-03-2022 08:30-0500 Heart rate 64 /min Omar Hopper MD Work Phone: [facility] 04-03-2022 08:30-0500 Respiratory rate 20 /min Omar Hopper MD Work Phone: [facility] 04-03-2022 08:30-0500 Systolic blood pressure 108 mm[Hg] Omar Hopper MD Work Phone: [facility] Encounters Encounter Date Encounter Type Care Provider Facility Start: 12-15-2024 Emergency department patient visit Mulugeta Jose Facility:[facility] Start: 07-30-2024 End: 07-30-2024 Patient encounter procedure Khadijah Matamoros APRN.PATTERN PERFORATING MACHINE OPERATOR Work Phone: OB/Gynecology Comment on above: Encounter for gyneco logical examination (general) (routine) without abnormal findings (Primary Dx); Encounter for initial prescription of contraceptive pills Start: 07-30-2024 End: 07-30-2024 Patient encounter status Khadijah Matamoros APRN.PATTERN PERFORATING MACHINE OPERATOR Work Phone: [facility] Start: 07-30-2024 End: 07-30-2024 ambulatory KHADIJAH MATAMOROS Facility:[facility] Start: 07-30-2024 Encounter for gynecological examination (general) (routine) without abnormal findings KHADIJAH MATAMOROS [facility] Start: 07-29-2024 End: 07-29-2024 Refill Kelsea Elian EXHIBIT DESIGNER.PATTERN PERFORATING MACHINE OPERATOR Work Phone: OB/Gynecology Comment on above: Refill Request Start: 07-17-2023 End: 07-17-2023 Patient encounter procedure Kelsea Vegasf EXHIBIT DESIGNER.PATTERN PERFORATING MACHINE OPERATOR Work Phone: OB/Gynecology Comment on above: Encounter for gyneco logical examination (general) (routine) without abnormal findings (Primary Dx); Encounter for surveillance of contraceptive pills Start: 07-17-2023 End: 07-17-2023 Patient encounter status Kelsea Vegasf EXHIBIT DESIGNER.PATTERN PERFORATING MACHINE OPERATOR Work Phone: [facility] Work Phone: Start: 10-19-2022 End: 10-19-2022 Patient encounter procedure Kelsea Elian EXHIBIT DESIGNER.PATTERN PERFORATING MACHINE OPERATOR Work Phone: OB/Gynecology Comment on above: Encounter for gyneco logical examination (general) (routine) without abnormal findings (Primary Dx); Encounter for surveillance of contraceptive pills Start: 10-19-2022 End: 10-19-2022 Patient encounter status Kelsea Plummer EXHIBIT DESIGNER.PATTERN PERFORATING MACHINE OPERATOR Work Phone: OB/Gynecology Start: 10-03-2022 Refill Omar Hopper MD Work Phone: [facility] Comment on above: Refill Request Start: 04-03-2022 End: 04-03-2022 Patient encounter status Omar Hopper MD Work Phone: [facility] [place] Start: 04-03-2022 End: 04-03-2022 Periodic preventive med est patient 12-17yrs Omar Hopper MD Work Phone: [facility] Comment on above: Encounter for routin e child health examination w/o abnormal findings (Primary Dx) Start: 03-31-2022 Refill Omar Hopper MD Work Phone: [facility] [place] Comment on above: Refill Request Start: 01-31-2022 End: 01-31-2022 Patient encounter procedure Nurse Brittanys [facility] Comment on above: Encounter for immuni zation (Primary Dx) Start: 07-30-2020 End: 07-30-2020 Subsequent hospital visit by physician Xr [facility] [place] Work Phone: Radiology Comment on above: Finger injury, left, initial encounter [S69.92XA] Procedures Date Procedure Procedure Detail Performing Clinician Start: 04-03-2022 Adult depression screening assessment Omar Hopper MD Work Phone: Start: 01-31-2022 Menacwy-tt conj vacc serogroups acwy for im use Cherelle Liz PA-C Work Phone: Start: 07-30-2020 Radex fingr minimum 2 views Gege Connolly EXHIBIT DESIGNER.PATTERN PERFORATING MACHINE OPERATOR Work Phone: Start: 04-19-2020 Adult depression screening assessment Nurse Toney Plan of Treatment Date Care Activity Detail Author Start: 07-10-2026 Urine microalbumin profile [facility] Start: 08-17-2025 End: 08-17-2025 Patient encounter procedure 08/17/2025 10:15 AM EDT Office Visit OB/Gynecology [address] [place] [address] Khadijah Matamoros APRN.PATTERN PERFORATING MACHINE OPERATOR [address] [place] [address] Annual OB/Gynecology Comment on above: Annual Start: 07-30-2024 End: 07-30-2024 Patient encounter procedure 07/30/2024 10:15 AM EDT Office Visit OB/Gynecology [address] [place] [address] Khadijah Matamoros APRN.PATTERN PERFORATING MACHINE OPERATOR [address] [place] [address] annual OB/Gynecology Comment on above: annual Start: 12-16-2023 Covid-19 Vaccine ( season) Covid-19 Vaccine () [facility] Start: 12-16-2023 Influenza vaccination [facility] Start: 04-16-2023 Depression Assessment Depression Ass essment [facility] Start: 04-03-2023 Adult depression screening assessment DEPRESSION SCREENING [facility] Start: 12-15-2022 Covid-19 Vaccine ( season) Covid-19 Vaccine () [facility] Start: 12-15-2022 Influenza vaccination [facility] Start: 2022 Anxiety Screening Anxiety Screening [facility] Start: 2022 CHLAMYDIA SCREENING (18-) CHLAMYDIA SCREENING (18-) [facility] Start: 2022 Depression Screening Depression Scre ening [facility] Start: 2022 GC (GONORRHEA) SCREE JOSÉ MIGUEL (18-24) GC (GONORRHEA) SCREENING (18-24) [facility] Start: 2022 HEPATITIS C SCREENING HEPATITIS C [facility] Start: 2022 Hepatitis C screening Hepatitis C [facility] Start: 2022 HIV SCREENING HIV SCREENING [facility] Start: 2022 HIV screening HIV Screening [facility] Start: 2022 Screening for Chlamy miguelina trachomatis Chlamydia Screening (18-24) [facility] Start: 04-16-2022 DEPRESSION ASSESSMENT DEPRESSION ASS ESSMENT [facility] Start: 12-15-2021 Influenza vaccination INFLUENZA (#1) [facility] Start: 04-19-2021 Adult depression screening assessment DEPRESSION SCREENING [facility] Start: 2020 Meningococcal B Vacc ine (1 of 2 - Standard) Meningococcal B Vaccine (1 of 2 - Standard) [facility] Start: 2020 Meningococcal B Vacc ine: Consider Based On Risk (1 of 2 - Patient Seeks Protection) Meningococcal B Vaccine: Consider Based On Risk (1 of 2 - Patient Seeks Protection) [facility] Start: 2019 CHLAMYDIA SCREENING (<18) CHLAMYDIA SCREENING (<18) [facility] Start: 2019 GC (GONORRHEA) SCREE JOSÉ MIGUEL (<18) GC (GONORRHEA) SCREENING (<18) [facility] Start: 2018 PEDS TO ADULT TRANSI TION ANNUAL ASSESSMENT PEDS TO ADULT TRANSITION ANNUAL ASSESSMENT [facility] Start: 2016 PEDS TO ADULT TRANSI TION INITIAL DISCUSSION PEDS TO ADULT TRANSITION INITIAL DISCUSSION [facility] Start: 2014 MENINGOCOCCAL B: Con parcel post weigher based on risk (1 of 2 - Risk Bexsero 2-dose series) MENINGOCOCCAL B: Consider based on risk (1 of 2 - Risk Bexsero 2-dose series) [facility] Start: 2004 COVID-19 VACCINE (#1) COVID-19 VACCI NE (#1) [facility] Immunizations Immunization Date Immunization Notes Care Provider Ginger sahu 01-31-2022 meningococcal (MenACWY-TT) vaccine, quadrivalent (MENQUADFI) Nurse [facility] Work Phone: 04-19-2020 Human Papillomavirus 9-valent vaccine [facility] 04-19-2020 influenza, injectabl e, quadrivalent, contains preservative [facility] 04-19-2020 influenza virus vacc ine, unspecified formulation Kelsea Plummer APRN.CNP Work Phone: [facility] 09-12-2017 Human Papillomavirus 9-valent vaccine [facility] 07-10-2016 meningococcal polysaccharide (groups A, C, Y and W-135) diphtheria toxoid conjugate vaccine (MCV4P) [facility] 07-10-2016 tetanus toxoid, redu karolina diphtheria toxoid, and acellular pertussis vaccine, adsorbed [facility] 07-19-2009 diphtheria, tetanus toxoids and acellular pertussis vaccine [facility] Work Phone: 07-19-2009 measles, mumps and rubella virus vaccine [facility] Work Phone: 07-19-2009 poliovirus vaccine, inactivated [facility] Work Phone: 07-19-2009 varicella virus vaccine [facility] Work Phone: 01-07-2009 haemophilus influenz ae type b vaccine, HbOC conjugate [facility] Work Phone: 01-07-2009 influenza virus vacc ine, live, attenuated, for intranasal use [facility] Work Phone: 02-27-2006 influenza virus vacc ine, unspecified formulation [facility] Work Phone: 02-27-2006 pneumococcal conjuga te vaccine, 7 valent [facility] Work Phone: 10-23-2005 diphtheria, tetanus toxoids and acellular pertussis vaccine [facility] Work Phone: 05-08-2005 haemophilus influenz ae type b conjugate and Hepatitis B vaccine [facility] Work Phone: 05-08-2005 measles, mumps and rubella virus vaccine [facility] Work Phone: 05-08-2005 varicella virus vaccine [facility] Work Phone: 02-21-2005 influenza virus vacc ine, unspecified formulation [facility] Work Phone: 02-01-2005 diphtheria, tetanus toxoids and acellular pertussis vaccine [facility] 02-01-2005 poliovirus vaccine, inactivated [facility] 2004 pneumococcal conjuga te vaccine, 7 valent [facility] 2004 diphtheria, tetanus toxoids and acellular pertussis vaccine [facility] 2004 haemophilus influenz ae type b vaccine, HbOC conjugate [facility] 2004 hepatitis B vaccine, pediatric or pediatric/adolescent dosage [facility] 2004 poliovirus vaccine, inactivated [facility] 2004 pneumococcal conjuga te vaccine, 7 valent [facility] 2004 diphtheria, tetanus toxoids and acellular pertussis vaccine [facility] 2004 haemophilus influenz ae type b vaccine, HbOC conjugate [facility] 2004 hepatitis B vaccine, pediatric or pediatric/adolescent dosage [facility] 2004 poliovirus vaccine, inactivated [facility] 2004 pneumococcal conjuga te vaccine, 7 valent [facility] Payers Date Payer Category Payer Private Health Insurance [id number] 2024 Self-pay 2023 Private Health Insurance [id number] 2022 Unknown [id number] 2020 Private Health Insurance [id number] Unknown [id number] Social History Date Type Detail Facility Start: 09-12-2017 End: 04-03-2022 Tobacco smoking status NHIS Never smoked tobacco [facility] Start: 09-12-2017 End: 04-03-2022 Tobacco use and exposure Smokeless tobacco non-user [facility] Start: 11-15-2020 End: 07-30-2024 Alcohol intake Lifetime non-drinker (finding) [facility] Start: 04-19-2020 End: 04-03-2022 History SDOH Alcohol Frequency 1 [facility] Start: 2004 Sex Assigned At Not on file [facility] Start: 06-30-2020 End: 01-12-2022 Exposure to SARS-CoV-2 (event) Not sure [facility] Work Phone: Start: 04-03-2022 History SDOH Physica l Activity DPW 6 [facility] Start: 04-03-2022 History SDOH Physica l Activity MPS 5 [facility] Start: 04-03-2022 History SDOH Transport Med 2 [facility] Start: 04-19-2020 End: 10-03-2022 History of Social function [facility] Start: 04-19-2020 End: 10-03-2022 Alcohol Use Disorder Identification Test - Consumption [AUDIT-C] [facility] How often to you hav e a drink containing alcohol? Never [facility] Average Number of Drinks Not on file [facility] (I/We) worried porfirio (my/our) food would run out before (I/we) got money to buy more. Never true [facility] In the past 12 month s, was there a time when you were not able to pay the mortgage or rent on time? No [facility] Functional Status Date Assessment Result Facility 07-09-2013 Are you deaf, or do you have serious difficulty hearing No 07/09/2013 11:10 AM Ly Wayne RN No [facility] 07-09-2013 Are you blind, or do you have serious difficulty seeing, even when wearing glasses No 07/09/2013 11:10 AM Ly Wayne RN No [facility] 07-09-2013 Do you have serious difficulty walking or climbing stairs No 07/09/2013 11:10 AM Ly Wayne RN No [facility] 07-09-2013 Do you have difficul ty dressing or bathing No 07/09/2013 11:10 AM Ly Wayne RN No [facility] Mental Status Date Assessment Result Facility 07-09-2013 Because of a physica l, mental, or emotional condition, do you have serious difficulty concentrating, remembering, or making decisions Yes 07/09/2013 11:10 AM Ly Wayne RN Yes [facility] Clinical Notes 07-30-2020 to 07-30-2024 Patient Khadijah Kolb APRN.PATTERN PERFORATING MACHINE OPERATOR - 07/30/2024 10:49 AM EDTTelephone Encounter - Jaycee Contreras, DEBO - 07/29/2024 11:04 AM Kelsea Bello APRN.[facility] - 07/17/2023 10:24 AM EDT Note Date & Type Note Facility 07-30-2024 Instructions Khadijah Matamoros APRN.[facility] - 07/30/2024 11:07 AM EDT Oral Contraceptives: [...] These are formulated to give you a orchestra director period. First day of next menstrual period [...] less iron deficiency anemia in pill users. care home use is associated with a decreased incidence [...] and mild fluid retention. There is no termite inspector weight gain with the use of the [...] necessary health information. documented in this encounter [facility] 07-30-2024 Note HNO ID: [id number] Author: KHADIJAH MATAMOROS APRN.CNP Service: ? Author Type: Nurse Practitioner Type: Progress Notes Filed: 07/30/2024 11:15 Note Text: Justine is a 19 year old who presents for an annual gynecologic exam without complaints. 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 [...] Living0 SAB0 IAB0 Ectopic0 Multiple0 Live Births0 Triple Valve Mechanic History LMP: 07/05/2024, Having periods Age at Menarche: 11 Age at First : Age at Menopause: Triple Valve Mechanic History Comments: Sexual Activity: Yes; Male Contraception: [...] year or sooner as needed. Khadijah Matamoros APRN.[facility] 07-30-2024 History of Presen t illness Narrative Justine is a 19 year old who presents for an annual gynecologic exam without complaints. 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 [...] Living0 SAB0 IAB0 Ectopic0 Multiple0 Live Births0 Triple Valve Mechanic History LMP: 07/05/2024, Having periods Age at Menarche: 11 Age at First : Age at Menopause: Triple Valve Mechanic History Comments: Sexual Activity: Yes; Male Contraception: [...] Khadijah Matamoros APRN.AG documented in this encounter [facility] 07-29-2024 Telephone encount er Note Last annual 07/2023. Transferred to [facility] to schedule annual - had to update insurance. Requested Prescriptions Pending Prescriptions Disp Refills Drospirenone-Ethinyl Estradiol (WENDY, 28,) 3-0.02 mg per tablet 84 tablet 0 Sig: Take 1 tablet by mouth once daily. Jaycee Contreras RN [facility] 07-29-2024 Miscellaneous Notes Formattin g of this note is different from the original. Last annual 07/2023. Transferred to [facility] to schedule annual - had to update insurance. Requested Prescriptions Pending Prescriptions Disp Refills Drospirenone-Ethinyl Estradiol (WENDY, 28,) 3-0.02 mg per tablet 84 tablet 0 Sig: Take 1 tablet by mouth once daily. Jaycee Contreras RN documented in this encounter [facility] 07-17-2023 History of Presen t illness Narrative [...] L0 SAB0 IAB0 Ectopic0 Multiple0 Live Births0 Triple Valve Mechanic History LMP: 07/14/2023 (Exact Date), Having periods Age at Menarche: Age at First : Age at Menopause: Triple Valve Mechanic History Comments: Sexual Activity: Yes; Male Contraception: [...] Kelsea Plummer APRN.AG documented in this encounter [facility] 10-19-2022 History of Presen t illness Narrative [...] L0 SAB0 IAB0 Ectopic0 Multiple0 Live Births0 Triple Valve Mechanic History LMP: 10/02/2022 (Exact Date), Having periods Age at Menarche: Age at First : Age at Menopause: Triple Valve Mechanic History Comments: Sexual Activity: Yes; Male Contraception: [...] Kelsea Plummer APRN.CNP documented in this encounter [facility] 10-03-2022 Miscellaneous Notes Formattin g of this note might be different from the original. Patient called. Her insurance just changed and WEDNY is not covered. Patient is willing to pay out of pocket at this time until other options are discussed. Aware RM sent in one pack with one refill until her visit. Kathie Urbano RN Received call from [facility] that patient can no longer receive refills of OCP by Peds since she is now 17 and will need to see [facility] [employer] [facility]. Patient is leaving for vacation on and will need to start a new pack. Patient has a New annual on 10/19 with RM. Can we please send in an extension of OCP until she establishes care with our office next month? RX pending. Kathie Urbano RN documented in this encounter [facility] 10-03-2022 Miscellaneous Notes Formattin g of this note might be different from the original. refilled by [employer] [facility] today Last WCC: 04/03/22 - call transferred to [facility] to assist with scheduling for [employer] [facility]. Verify RX Benefits Completed Last medication refill [...] done HIV SCREENING Never done CHLAMYDIA SCREENING (18-24) Never done Ly Worley RN documented in this encounter [facility] 04-03-2022 History of Presen t illness Narrative [...] MULTI-VIT GUMMIES ORAL) Take by mouth. Ascorbic Ekcs-Amytlkwez-Rbx (EMERGEN-C) 1,000 mg pwep Take by mouth. [...] of physical activity per day works at [employer] Screen Time totaling more than 2 hours [...] Growth: No growth concerns Gynecological history: LMP: 03-29- Cycles are regular and last 3-4 days. Dysmenorrhea: none Heavy periods: no Substance use: none High risk behaviors: none Sexual History: Attraction: male Sexually Active: No Body image: satisfactory Screening tools reviewed and discussed with patient/slglvu-SDE-D and Social Determinants of Health. Please see [...] Future nurse visit recommended. Patient was counseled vcxr-co-tzsd by myself (the billing provider) for the following immunizations and vaccine components, including side effects: Influenza and Men B. She will declined COVID-vaccine. She reports mom had side effects that were worse than chemo - Follow up in one year for routine physical. SIGNATURE: Omar Hopper MD PATIENT NAME: Justine Turner DATE: April 03, 2022 TIME: 8:28 AM documented in this encounter [facility] 03-31-2022 Miscellaneous Notes Formattin g of this note might be different from the original. Mother notified and states that patient is not having any issues with her OCP. [facility] scheduled for 04/03/22. Ly Worley RN I can refill if she is not having any issues. If she is having any issues with her OCP then I recommend being seen by [employer] [employer] [facility] I do recommend that she get scheduled [...] was on 04/19/2020. documented in this encounter [facility] 07-30-2020 History of Presen t illness Narrative [...] 2020 3:36 PM documented in this encounter [facility] Evaluation note Diagnosis Encounter for immunization- Primary Need for other specified prophylactic vaccination against single bacterial disease documented in this encounter [facility] note* Diagnosis Encounter for routine child health examination w/o abnormal findings- Primary Routine or child health check documented in this encounter [facility] note* Diagnosis Encounter for gynecological examination (general) (routine) without abnormal findings- Primary Encounter for surveillance of contraceptive pills Surveillance of previously prescribed contraceptive pill documented in this encounter [facility] note* Diagnosis Encounter for gynecological examination (general) (routine) without abnormal findings- Primary Encounter for surveillance of contraceptive pills Surveillance of previously prescribed contraceptive pill [facility] Diagnosis Finger injury, left, initial encounter [facility] Diagnosis Encounter for gynecological examination (general) (routine) without abnormal findings- Primary Encounter for initial prescription of contraceptive pills General counseling for prescription of oral contraceptives documented in this encounter [facility] Summary Purpose Family History No Family History Records FoundNo Family History Records Found Advance Directives No Advanced Directives Records FoundNo Advanced Directives Records Found Additional Source Comments Source Comments (unrecognize d section and content) In the event this informatio n is protected by the Federal Confidentiality of Alcohol and Drug Abuse Patient Records regulations: The Federal rules restrict any use of the information to criminally investigate or prosecute any alcohol or drug abuse patient.[facility] the event this information is protected by the Federal Confidentiality of Alcohol and Drug Abuse Patient Records regulations: The Federal rules restrict any use of the information to criminally investigate or prosecute any alcohol or drug abuse patient.[facility] the event this information is protected by the Federal Confidentiality of Alcohol and Drug Abuse Patient Records regulations: The Federal rules restrict any use of the information to criminally investigate or prosecute any alcohol or drug abuse patient.[facility] the event this information is protected by the Federal Confidentiality of Alcohol and Drug Abuse Patient Records regulations: The Federal rules restrict any use of the information to criminally investigate or prosecute any alcohol or drug abuse patient.[facility] the event this information is protected by the Federal Confidentiality of Alcohol and Drug Abuse Patient Records regulations: The Federal rules restrict any use of the information to criminally investigate or prosecute any alcohol or drug abuse patient.[facility] the event this information is protected by the Federal Confidentiality of Alcohol and Drug Abuse Patient Records regulations: The Federal rules restrict any use of the information to criminally investigate or prosecute any alcohol or drug abuse patient.[facility] the event this information is protected by the Federal Confidentiality of Alcohol and Drug Abuse Patient Records regulations: The Federal rules restrict any use of the information to criminally investigate or prosecute any alcohol or drug abuse patient.[facility] the event this information is protected by the Federal Confidentiality of Alcohol and Drug Abuse Patient Records regulations: The Federal rules restrict any use of the information to criminally investigate or prosecute any alcohol or drug abuse patient.[facility]ronIn the event this information is protected by the Federal Confidentiality of Alcohol and Drug Abuse Patient Records regulations: The Federal rules restrict any use of the information to criminally investigate or prosecute any alcohol or drug abuse patient.[facility]ronIn the event this information is protected by the Federal Confidentiality of Alcohol and Drug Abuse Patient Records regulations: The Federal rules restrict any use of the information to criminally investigate or prosecute any alcohol or drug abuse patient.[facility] Reason for Visit (unrecogniz ed section and content) Reason Comments Imm/Inj Reason Onset Date Comments Refill Request 03/31/2022 Reason Comments Well Child Reason Onset Date Comments Refill Request 10/03/2022 Reason Comments Yearly Exam Reason Onset Date Comments Refill Request 07/29/2024 Reason Comments Well Woman Care Teams (unrecognized sec tion and content) Tent Finisher Relationship Specialty Start Date End Date Omar Hopper MD [address] [place], [place] [id number] PCP - General Pediatrics 04/27/11 Tent Finisher Relationship Specialty Start Date End Date Omar Hopper MD [address] [place] [address] PCP - General Pediatrics 04/27/11 Tent Finisher Relationship Specialty Start Date End Date Omar Hopper MD [address] [place] [address] PCP - General Pediatrics 04/27/11 Tent Finisher Relationship Specialty Start Date End Date Omar Hopper MD [address] [place], [place] [id number] [phone] PCP - General Pediatrics 04/27/11 Tent Finisher Relationship Specialty Start Date End Date Omar Hopper MD [address] [place], [place] [address] PCP - General Pediatrics 04/27/11 Tent Finisher Relationship Specialty Start Date End Date Omar Hopper MD [address] [place] [address] PCP - General Pediatrics 04/27/11 Tent Finisher Relationship Specialty Start Date End Date Omar Hopper MD [address] [place] [address] PCP - General Pediatrics 04/27/11 INFORMATION SOURCE (unrecogn ized section and content) DATE CREATED AUTHOR 08/19/2024 [facility] DATE CREATED AUTHOR AUTHOR'S ORGANIZ ATION 12/15/[address] [facility] FOR RECORDS PERTAINING TO PATIENTS WHO ARE [...] BE BASED ON THE PRIMARY CLINICAL RECORDS. [employer] provides no warranty or guarantee of the accuracy or completeness of information in this document.
[2024-12-15] MEDS: 0.9% Normal Saline (1000mL) 1,000 ML 100 ML IV (23:59)
[2024-12-16] VITALS (7 sets, daily range): BP systolic 114–126; BP diastolic 60–73; PULSE 85–119; RESP 15–18; TEMP 36.8–39.3; O2SAT 99–100
[2024-12-16 06:19] LABS: Hematocrit 35.2 % (37-47); Hemoglobin 11.5 g/dL (12.0-15.0); Immature Granulocytes Count 0.090 X10^3/uL (0.0-0.0); Mean Corp Hgb Conc 32.7 g/dL (32-36); Mean Corpuscular Volume 82.6 fL (81-99); Mean Platelet Vol. 9.9 fl (6.2-12.0); NRBC Flagged by Analyzer 0 % (0-5); Platelet Count 230 K/mm3 (150-450); RBC Distribution Width CV 14.6 % (11.6-14.6); RBC Distribution Width SD 43.6 fl (35.1-43.9); Red Blood Count 4.26 M/mm3 (4.2-5.4); White Blood Count 12.2 K/mm3 (4.4-11.0)
[2024-12-16 06:46] LABS: AST(SGOT) 16 U/L (<=31); Alanine Aminotransfer ALT/SGPT 8 U/L (<=34); Albumin, Serum 4.1 g/dL (3.5-5.0); Alkaline Phosphatase 63 U/L (35-104); Anion Gap 13 (5-15); BUN 6 mg/dL (4-19); BUN/Creat Ratio 8.2 RATIO (10-20); Calcium,Total 8.9 mg/dL (7.6-11.0); Carbon Dioxide 18.5 mmol/L (21.0-32.0); Chloride 104 mmol/L (98-108); Estimated Creatinine Clearance 109.92 ml/min (50-250); Globulin 3.3 g/dL (2.2-4.2); Glucose 117 mg/dL (70-99); Potassium 3.7 mmol/L (3.3-5.1)
--- NOTE | 2024-12-16 07:30 | PCM.CONS.GEN ---
Assessment & Plan Assessment/Plan (1) Calculus, ureteral: PLAN: Plan to take her to surgery for tomorrow for cystoscopy right ureteroscopy basket extraction of stone possible laser stone possible balloon dilation and stent placement on the right side continue with IV antibiotics n.p.o. at midnight (2) Pyelonephritis: (3) Acute flank pain: HPI Consult Data Date of Consult: 12/16/24 HPI Narrative Reason for Consultation: Right ureteral calculi with obstruction HPI Narrative: PORTIA TURNER, is a 19 F who presents hospital with fevers elevated white blood count urine that looks positive for infection CAT scan was done that demonstrated right hydronephrosis stone in the distal right ureter. She has been having flank pain off-and-on. [facility] Medical History Chronic anemia Medical History no medical history Allergy/AdvReac Type Severity Reaction Status Date / Time No Known Allergies Allergy Verified 12/15/24 18:55 Family History Father Kidney stone Mother Ovarian cancer Family History no significant family his Surgical History S/P wisdom tooth extraction Surgical History no surgical history Social History household members: other details: Roommates housing: other details: [facility]. Smoking Status: Never smoker alcohol intake: current alcohol intake frequency: a few times a week details: Max 1-2 drinks 2 times per week. substance use type: does not use ROS Constitutional Constitutional: Denies chills, fever(s) or malaise Eyes Eyes: Denies blurry vision or change in vision ENT HEENT: Reports none Cardiovascular Cardiovascular: Denies chest pain or palpitations Respiratory/Chest Respiratory/Chest: Denies cough or shortness of breath with exertion Gastrointestinal Gastrointestinal: Denies abdominal pain, constipation or diarrhea Musculoskeletal Musculoskeletal: Denies back pain, joint stiffness or joint swelling Integumentary Integumentary: Denies dry skin, jaundice, lesions or rash Neurologic Neurologic: Denies confusion, syncope or weakness Psychiatric Psychiatric: Reports none; Denies anxiety or depression Endocrine Endocrinology: Denies excessive sweating, fatigue or flushing Hematologic/Lymphatic Hematologic/Lymphatic: Denies anemia, easy bleeding or easy bruising Physical Exam Const alert and oriented x3 General Appearance: cooperative HEENT normocephalic and head/scalp atraumatic Eyes PERRL and EOMs intact bilaterally Neck supple, no JVD and no carotid bruits Resp normal respiratory effort, normal air movement and clear to auscultation bilaterally Cardio regular rate and no murmurs GI normal to inspection, nondistended, normoactive bowel sounds and soft to palpation Extremity normal capillary refill General Extremity: no tenderness to palpation of joints or extremities; Negative for edema Skin no rashes or lesions noted and no wounds General Skin Exam: no breakdown Neuro CN's II-XII intact bilaterally Psych affect normal Appearance: appropriate Lab / Micro Data 12/16/24 05:38 12/16/24 05:38 Labs: Laboratory Results - last 24 hr 12/15/24 19:34: WBC 12.3 H, RBC 4.12 L, Hgb 11.1 L, Hct 33.5 L, MCV 81.3, MCH 26.9 L, MCHC 33.1, RDW Std Deviation 42.3, RDW Coeff of Solomon 14.3, Plt Count 273, MPV 9.2, Immature Gran % (Auto) 0.300, Neut % (Auto) 81.6 H, Lymph % (Auto) 9.1 L, [place] % (Auto) 8.8, Eos % (Auto) 0.0, Baso % (Auto) 0.2, Absolute Neuts (auto) 10.1 H, Absolute Lymphs (auto) 1.12, Nucleated RBC % 0, Sodium 134, Potassium 3.5, Chloride 102, Carbon Dioxide 19.2 L, Anion Gap 13, BUN 6, Creatinine 0.77, Est GFR (MDRD) Non-Af 113, BUN/Creatinine Ratio 7.3 L, Glucose 140 H, Calcium 9.3, Total Bilirubin 0.31, AST 18, ALT 9, Alkaline Phosphatase 63, Total Protein 7.4, Albumin 4.1, Globulin 3.3, Albumin/Globulin Ratio 1.3, Lipase 23, Serum , Qual NEGATIVE 12/15/24 19:43: Urine Color Straw, Urine Clarity Sl. Cloudy, Urine pH 7.0, Ur Specific [place] 1.005, Urine Protein 30 H, Urine Glucose (UA) Normal, Urine Ketones 5 H, Urine Occult Blood 25 H, Urine Nitrite Positive H, Urine Bilirubin Negative, Urine Urobilinogen Normal, Ur Leukocyte Esterase 500 H, Urine RBC 5-10 SEEN, Urine WBC 50-100 SEEN, Ur Squamous Epith Cells 0-5 SEEN, Ur Transition Epith Cell 0-5 SEEN, Ur Renal Epithelial Cell 0-5 SEEN, Urine Bacteria 4+, Urine Mucus 0 SEEN 12/16/24 05:38: WBC 12.2 H, RBC 4.26, Hgb 11.5 L, Hct 35.2 L, MCV 82.6, MCH 27.0, MCHC 32.7, RDW Std Deviation 43.6, RDW Coeff of Solomon 14.6, Plt Count 230, MPV 9.9, Immature Gran % (Auto) 0.700, Neut % (Auto) 82.1 H, Lymph % (Auto) 10.5 L, [place] % (Auto) 6.5, Eos % (Auto) 0.1, Baso % (Auto) 0.1, Absolute Neuts (auto) 10.0 H, Absolute Lymphs (auto) 1.28, Nucleated RBC % 0, Sodium 135, Potassium 3.7, Chloride 104, Carbon Dioxide 18.5 L, Anion Gap 13, BUN 6, Creatinine 0.73, Estim Creat Clear Calc 109.92, Est GFR (MDRD) Non-Af 121, BUN/Creatinine Ratio 8.2 L, Glucose 117 H, Calcium 8.9, Total Bilirubin 0.31, AST 16, ALT 8, Alkaline Phosphatase 63, Total Protein 7.4, Albumin 4.1, Globulin 3.3, Albumin/Globulin Ratio 1.2 Imaging Radiology Impression Abdomen/Pelvis CT 12/15/24 19:22 IMPRESSION: Findings of cystitis, and [id number]-left ureteritis and pyelonephritis. Additionally, there is a punctate minimally obstructing stone in the distal right ureter with associated mild right hydroureter. Reading Location: [id number]
--- NOTE | 2024-12-16 08:18 | PCM.PN.HOSP ---
Subjective Subjective No planned operative intervention at this time. Will wait for her to pass the stone. Objective Data Objective Data Vital Signs: Vital Signs Temp Pulse Resp BP Pulse Ox O2 Del Method 98.3 F 96 15 115/65 99 Room Air 12/16/24 04:30 12/16/24 04:30 12/16/24 04:30 12/16/24 04:30 12/16/24 05:03 12/16/24 07:37 Oxygen Delivery Method Room Air Weight: 138 lb 14.259 oz Body Mass Index (BMI) 24.5 Intake & Output: Intake and Output for Last 24 Hours 12/15/24 12/16/24 12/17/24 03:59 03:59 03:59 Intake Total 1050 / 1050 Balance 1050 / 1050 Lab / Micro Data 12/16/24 05:38 12/16/24 05:38 Labs: Laboratory Results - last 24 hr 12/15/24 19:34: WBC 12.3 H, RBC 4.12 L, Hgb 11.1 L, Hct 33.5 L, MCV 81.3, MCH 26.9 L, MCHC 33.1, RDW Std Deviation 42.3, RDW Coeff of Solomon 14.3, Plt Count 273, MPV 9.2, Immature Gran % (Auto) 0.300, Neut % (Auto) 81.6 H, Lymph % (Auto) 9.1 L, [place] % (Auto) 8.8, Eos % (Auto) 0.0, Baso % (Auto) 0.2, Absolute Neuts (auto) 10.1 H, Absolute Lymphs (auto) 1.12, Nucleated RBC % 0, Sodium 134, Potassium 3.5, Chloride 102, Carbon Dioxide 19.2 L, Anion Gap 13, BUN 6, Creatinine 0.77, Est GFR (MDRD) Non-Af 113, BUN/Creatinine Ratio 7.3 L, Glucose 140 H, Calcium 9.3, Total Bilirubin 0.31, AST 18, ALT 9, Alkaline Phosphatase 63, Total Protein 7.4, Albumin 4.1, Globulin 3.3, Albumin/Globulin Ratio 1.3, Lipase 23, Serum , Qual NEGATIVE 12/15/24 19:43: Urine Color Straw, Urine Clarity Sl. Cloudy, Urine pH 7.0, Ur Specific [place] 1.005, Urine Protein 30 H, Urine Glucose (UA) Normal, Urine Ketones 5 H, Urine Occult Blood 25 H, Urine Nitrite Positive H, Urine Bilirubin Negative, Urine Urobilinogen Normal, Ur Leukocyte Esterase 500 H, Urine RBC 5-10 SEEN, Urine WBC 50-100 SEEN, Ur Squamous Epith Cells 0-5 SEEN, Ur Transition Epith Cell 0-5 SEEN, Ur Renal Epithelial Cell 0-5 SEEN, Urine Bacteria 4+, Urine Mucus 0 SEEN 12/16/24 05:38: WBC 12.2 H, RBC 4.26, Hgb 11.5 L, Hct 35.2 L, MCV 82.6, MCH 27.0, MCHC 32.7, RDW Std Deviation 43.6, RDW Coeff of Solomon 14.6, Plt Count 230, MPV 9.9, Immature Gran % (Auto) 0.700, Neut % (Auto) 82.1 H, Lymph % (Auto) 10.5 L, [place] % (Auto) 6.5, Eos % (Auto) 0.1, Baso % (Auto) 0.1, Absolute Neuts (auto) 10.0 H, Absolute Lymphs (auto) 1.28, Nucleated RBC % 0, Sodium 135, Potassium 3.7, Chloride 104, Carbon Dioxide 18.5 L, Anion Gap 13, BUN 6, Creatinine 0.73, Estim Creat Clear Calc 109.92, Est GFR (MDRD) Non-Af 121, BUN/Creatinine Ratio 8.2 L, Glucose 117 H, Calcium 8.9, Total Bilirubin 0.31, AST 16, ALT 8, Alkaline Phosphatase 63, Total Protein 7.4, Albumin 4.1, Globulin 3.3, Albumin/Globulin Ratio 1.2 Radiography Diagnostic Testing: Radiology Impression Abdomen/Pelvis CT 12/15/24 19:22 IMPRESSION: Findings of cystitis, and [id number]-left ureteritis and pyelonephritis. Additionally, there is a punctate minimally obstructing stone in the distal right ureter with associated mild right hydroureter. Reading Location: [facility] Physical Exam Narrative General: Alert, Oriented x3, Cooperative, No apparent distress HEENT: Atraumatic, PERRLA, EOMI, Normocephalic Oral: Moist Mucosa Neck: Supple, No JVD Lungs: Clear to auscultation, Normal air movement, No rhonchi, No wheeze, No rales Cardiovascular: Regular rate, Regular Rhythm, Normal S1, Normal S2, No murmurs Abdomen: Soft, Non Tender, Non-Distended, No Hepato-splenomegaly Extremities: No edema, Capillary Refill Less than 3 Seconds Skin: No rashes, No breakdown Musculoskeletal: No Tenderness to Palpation of Joints or Extremities Neurological: No focal neurological deficits, Motor Exam 5/5 strength throughout, Sensory exam intact to light touch and pain Psych/Mental Status: Normal Affect, Appropriate Assessment & Plan Assessment/Plan (1) Pyelonephritis: (2) Calculus, ureteral: PLAN: Plan 1. Acute complicated pyelonephritis with mildly obstructing stone in the distal right ureter ? There is a little bit of mild right hydroureter as well ? Appreciate urology's assistance will continue with expectant management ? Continue with antibiotics pending culture ? Continue with pain management DVT: Lovenox Charges/Coding Visit Charges Inpatient E&M: 16163 Subs Hosp L2
[2024-12-16] MEDS: 0.9% Saline Lock 10 ML Syringe IV ×3 (08:55→21:32)
--- NOTE | 2024-12-16 09:17 | CASEMGMT ---
Dx: Acute Pyelonephritis LACE: 1 6-Clicks: 24 Medical record reviewed and patient evaluated for identification of discharge planning needs. Based on this review, at this time criteria are not present to indicate a need for discharge planning. Will remain available to assist with discharge planning needs as identified or requested.
[2024-12-16] MEDS: 0.9% Normal Saline (1000mL) 1,000 ML 100 ML IV (12:47)
[2024-12-17] VITALS (17 sets, daily range): BP systolic 103–150; BP diastolic 61–94; PULSE 65–88; RESP 16–18; TEMP 36.3–37.7; O2SAT 94–100; BMI 24.5
[2024-12-17] MEDS: 0.9% Normal Saline (1000mL) 1,000 ML 100 ML IV ×2 (02:55→15:26)
[2024-12-17 05:46] LABS: Hematocrit 27.1 % (37-47); Hemoglobin 9.0 g/dL (12.0-15.0); Immature Granulocytes Count 0.040 X10^3/uL (0.0-0.0); Mean Corp Hgb Conc 33.2 g/dL (32-36); Mean Corpuscular Volume 81.4 fL (81-99); Mean Platelet Vol. 9.3 fl (6.2-12.0); NRBC Flagged by Analyzer 0 % (0-5); Platelet Count 190 K/mm3 (150-450); RBC Distribution Width CV 14.5 % (11.6-14.6); RBC Distribution Width SD 43.2 fl (35.1-43.9); Red Blood Count 3.33 M/mm3 (4.2-5.4); White Blood Count 8.5 K/mm3 (4.4-11.0)
[2024-12-17 06:30] LABS: Anion Gap 11 (5-15); BUN 6 mg/dL (4-19); BUN/Creat Ratio 10.9 RATIO (10-20); Calcium,Total 8.3 mg/dL (7.6-11.0); Carbon Dioxide 18.3 mmol/L (21.0-32.0); Chloride 109 mmol/L (98-108); Estimated Creatinine Clearance 145.89 ml/min (50-250); Glucose 102 mg/dL (70-99); Potassium 3.5 mmol/L (3.3-5.1)
--- NOTE | 2024-12-17 07:31 | PCM.PN.HOSP ---
Reason for Visit Chief Complaint: Flank pain, abdominal pain, dysuria. Subjective Subjective Patient is a 21-year-old lady who presented with right flank pain. An assessment of pyelonephritis made admitted to regular nursing floor for further management Objective Data Objective Data Vital Signs: Vital Signs Temp Pulse Resp BP Pulse Ox O2 Del Method 98.1 F 88 16 130/76 H 100 Room Air 12/17/24 02:57 12/17/24 02:57 12/17/24 02:57 12/17/24 02:57 12/17/24 02:57 12/17/24 02:57 Oxygen Delivery Method Room Air Weight: 63 kg Body Mass Index (BMI) 24.5 Intake & Output: Intake and Output for Last 24 Hours 12/15/24 12/16/24 12/17/24 23:59 23:59 23:59 Intake Total 1050 / 1050 2030 / 2030 500 / 500 Output Total 500 / 500 Balance 1050 / 1050 2029 / 2030 0 / 0 Lab / Micro Data 12/17/24 05:30 12/17/24 05:30 Labs: Laboratory Results - last 24 hr 12/17/24 05:30: WBC 8.5, RBC 3.33 L, Hgb 9.0 L, Hct 27.1 L, MCV 81.4, MCH 27.0, MCHC 33.2, RDW Std Deviation 43.2, RDW Coeff of Solomon 14.5, Plt Count 190, MPV 9.3, Immature Gran % (Auto) 0.500, Neut % (Auto) 71.0 H, Lymph % (Auto) 20.8, [place] % (Auto) 7.0, Eos % (Auto) 0.6, Baso % (Auto) 0.1, Absolute Neuts (auto) 6.1, Absolute Lymphs (auto) 1.77, Nucleated RBC % 0, Sodium 139, Potassium 3.5, Chloride 109 H, Carbon Dioxide 18.3 L, Anion Gap 11, BUN 6, Creatinine 0.55 L, Estim Creat Clear Calc 145.89, Est GFR (MDRD) Non-Af 134, BUN/Creatinine Ratio 10.9, Glucose 102 H, Calcium 8.3 Physical Exam Narrative GENERAL: cooperative HEENT: Atraumatic; normocephalic EYES; Anicteric, Normal Conjunctiva NECK; supple, normal thyroid, RESPIRATORY: Diminished to auscultation CARDIOVASCULAR: Regular S1 S2, GI: soft, normoactive bowel sounds, : No Renal angle tenderness; EXTREMITIES: No edema, no clubbing, MUSCULOSKELETAL: no muscle wasting NEURO: Awake; no lateralizing signs. SKIN: No Rash PSYCH; Flat affect Assessment & Plan Assessment/Plan (1) Pyelonephritis: (2) Calculus, ureteral: PLAN: Plan Patient is a 21-year-old lady who presented with right flank pain. An assessment of pyelonephritis made admitted to regular nursing floor for further management 1. Acute complicated pyelonephritis with mildly obstructing stone in the distal right ureter with E. coli ? Admitted to regular nursing floor treatment started with pain meds IV fluid antibiotics with consult placed to urology. Urine cultures obtained on admission so far positive for E. coli 2. DVT prophylaxis ? Low risk to encourage early ambulation Charges/Coding Visit Charges Inpatient E&M: 76939 [facility] Hosp L1
--- NOTE | 2024-12-17 09:06 | PN.URO_ITS ---
Subjective Subjective 19-year-old female with a stone in distal right ureter has not been able to pass it still having pain plan to proceed with right ureteroscopy laser basket and possible stent on the right side. Objective Data Objective Data Vital Signs: Vital Signs Temp Pulse Resp BP Pulse Ox O2 Del Method 98.7 F 82 17 126/70 H 100 Room Air 12/17/24 08:05 12/17/24 08:05 12/17/24 08:05 12/17/24 08:05 12/17/24 08:05 12/17/24 08:05 Oxygen Delivery Method Room Air Weight: 63 kg Body Mass Index (BMI) 24.5 Intake & Output: Intake and Output for Last 24 Hours 12/15/24 12/16/24 12/17/24 23:59 23:59 23:59 Intake Total 1050 / 1050 2029 500 / 500 Output Total 500 / 500 Balance 1050 / 1050 2029 0 / 0 Lab / Micro Data 12/17/24 05:30 12/17/24 05:30 Labs: Laboratory Results - last 24 hr 12/17/24 05:30: WBC 8.5, RBC 3.33 L, Hgb 9.0 L, Hct 27.1 L, MCV 81.4, MCH 27.0, MCHC 33.2, RDW Std Deviation 43.2, RDW Coeff of Solomon 14.5, Plt Count 190, MPV 9.3, Immature Gran % (Auto) 0.500, Neut % (Auto) 71.0 H, Lymph % (Auto) 20.8, [place] % (Auto) 7.0, Eos % (Auto) 0.6, Baso % (Auto) 0.1, Absolute Neuts (auto) 6.1, Absolute Lymphs (auto) 1.77, Nucleated RBC % 0, Sodium 139, Potassium 3.5, Chloride 109 H, Carbon Dioxide 18.3 L, Anion Gap 11, BUN 6, Creatinine 0.55 L, Estim Creat Clear Calc 145.89, Est GFR (MDRD) Non-Af 134, BUN/Creatinine Ratio 10.9, Glucose 102 H, Calcium 8.3 Micro: Microbiology 12/15/24 19:43 Urine, Clean Catch Urine Culture - Preliminary Presumptive E. coli
--- NOTE | 2024-12-17 09:11 | PRE.ANES_ITS ---
ASA Classification* ASA Classification ASA Classification: 2 (hx pyelonephritis) Assessment & Plan Anesthesia* Anesthesia Assessment Anesthesia Assessment: Discussed sedation and/or anesthesia options, risks, benefits, and alternatives with patient/parents/legal guardian/POA. Questions invited. The patient/parents/legal guardian/POA seems to understand and agrees to proceed with anesthesia plan. Reviewed the physical assessment, medical history, allergy history and patient home medications list prior to surgery/procedure/anesthetic and documented any changes. Performed airway and anesthesia risk assessments. Anesthesia Type Anesthesia Type: General (LMA) History Source History Obtained from:: Patient and Chart Anesthesia Focused Assessment* Temperature: 98.7 F Pulse Rate: 82 Blood Pressure: 126/70 Respiratory Rate: 17 Pulse Ox: 100 Oxygen Delivery Method: Room Air Airway Assessment Mouth opens: >3 cm Mallampati Score: II Teeth Condition: Intact Neck Range of motion (ROM): Full ROM Labs Anesthesia Preop lab: CBC WBC 8.5 K/mm3 (4.4-11.0) 12/17/24 05:30 12/17/24 RBC 3.33 M/mm3 (4.2-5.4) L 12/17/24 05:30 12/17/24 Hgb 9.0 g/dL (12.0-15.0) L 12/17/24 05:30 12/17/24 Hct 27.1 % (37-47) L 12/17/24 05:30 12/17/24 Plt Count 190 K/mm3 (150-450) 12/17/24 05:30 12/17/24 CHEMISTRY Potassium 3.5 mmol/L (3.3-5.1) 12/17/24 05:30 12/17/24 Sodium 139 mmol/L (133-145) 12/17/24 05:30 12/17/24 BUN 6 mg/dL (4-19) 12/17/24 05:30 12/17/24 Creatinine 0.55 mg/dL (0.70-1.20) L 12/17/24 05:30 Glucose 102 mg/dL (70-99) H 12/17/24 05:30 12/17/24 COAG Urine Test Negative Negative 07/01/19 17:36 07/01/19 Pre-Assessment Diagnosis/Proposed Procedure Planned Operative Procedure(s): Ureteroscopy, stone removal Anesthesia History 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 When Was Last Pacemaker Check QUESTION #4 FULL TEXT: You/Your Family Experience fever (hyperthermia) with Anesthesia Last Oral Intake Last Oral intake: Last Oral Intake NPO since 00:00 12/17/24 08:53 Meds taken in AM with sips of No 12/17/24 08:53 water? Meds patient instructed to take am of surgery PONV PONV - cable television installer: PONV - cable television installer Female HX of Motion Sickness HX of N/V After Surgery Non-Smoker Duration of Surgery greater than 60 minutes Number of Risk Factors PONV Score Height & Weight Height & Weight: Anesthesia: Height & Weight Height 5 ft 3 in 12/17/24 08:53 Weight: 63 kg 12/17/24 08:53 Body Mass Index (BMI) 24.5 12/17/24 08:53 Respiratory Assessment Respiratory Assessment - cable television installer: Respiratory Tract Infection Hx - cable television installer Hx Respiratory Tract Infection No 12/16/24 21:42 STOP Sleep Apnea STOP Sleep Apnea - cable television installer: STOP Sleep Apnea - cable television installer Hx Hypertension No 12/15/24 23:38 Hx Sleep Apnea No 12/15/24 23:38 CPAP BIPAP Do you snore loudly (louder No 12/15/24 23:38 than talking or can be heard Do you often feel tired/ No 12/15/24 23:38 fatigued/ sleepy during daytime? Has anyone observed you stop No 12/15/24 23:38 breathing during sleep? STOP Results Negative 12/15/24 23:38 QUESTION #5 FULL TEXT : Do you snore loudly (louder than talking or can be heard through closed doors)? 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 Specify any problems Hx of Preganancy in last 3 No 12/15/24 23:38 Months Nurse Filling Out Transfusion TMELLOR 12/15/24 23:38 & Questions: Date: 12/15/24 12/15/24 23:38 Time: 23:39 12/15/24 23:38 Patient unable to answer at this time (ie. confused, unrespo /Reproduction History /Reproductive History - cable television installer: /Reproductive Hx- cable television installer Hx Now No 12/16/24 21:42 Gestational Age (in weeks): EDC: Hx Hx Para Hx Section SAB No 12/16/24 21:42 Active Medications Active Medications: Current Medications Generic Name Dose Route Start Last Admin Trade Name Freq PRN Reason Stop Dose Admin Acetaminophen 650 mg 12/15/24 23:12 12/16/24 19:23 Acetaminophen 325 Mg Tablet PO 650 mg Q4H PRN PRN Administration Fever, pain 1-01/23 Al Hydroxide/Mg Hydroxide 30 ml 12/15/24 23:12 Mag Hydrox/Al Hydrox/Simeth 30 Ml Udc PO Q6H PRN PRN Gastric Burning Albuterol Sulfate 2.5 mg 12/15/24 23:12 Albuterol 2.5 Mg/3 Ml Vial.Neb. INHALATION Q2H PRN PRN Dyspnea, wheezing Enoxaparin Sodium 40 mg 12/16/24 10:00 12/17/24 07:16 Enoxaparin 40 Mg/0.4 Ml Syringe SC Not Given DAILY STEPHANIE Guaifenesin 20 ml 12/15/24 23:12 Guaifenesin 10 Ml Udc (200mg/10ml) PO Q4H PRN PRN COUGH Hydralazine HCl 10 mg 12/15/24 23:12 Hydralazine 20 Mg/Ml Vial IV Q4H PRN PRN SBP > 160 Protocol Ceftriaxone Sodium 1 gm in 50 mls @ 100 mls/hr 12/16/24 22:00 12/16/24 22:42 Rocephin IV Infused 2200 STEPHANIE Infusion Sodium Chloride 250 mls @ 15 mls/hr 12/15/24 23:40 IV .[id number] PRN Saline Flush Sodium Chloride 1,000 mls @ 100 mls/hr 12/16/24 11:40 12/17/24 08:54 IV Not Given .Q10H STEPHANIE Ketorolac Tromethamine 15 mg 12/15/24 23:12 12/17/24 03:36 Ketorolac 15 Mg/Ml Vial IV 12/20/24 23:12 15 mg Q6H PRN PRN Administration Pain Score 1-10 Melatonin 3 mg 12/15/24 23:12 Melatonin 3 Mg Tablet PO QHS PRN PRN INSOMNIA Ondansetron HCl 4 mg 12/15/24 23:12 Ondansetron 4 Mg/2 Ml Vial IV Q8H PRN PRN NAUSEA/VOMITING Senna/Docusate Sodium 2 tablet 12/15/24 23:12 Senna/Docusate Sodium 1 Tablet PO BID PRN PRN Constipation Sodium Chloride 10 - 40 ml 12/15/24 23:40 12/16/24 21:32 0.9% Saline Lock 10 Ml Syringe IV 10 ml UD PRN Administration SALINE FLUSH PFSH Medical History Chronic anemia Medical History no medical history Allergy/AdvReac Type Severity Reaction Status Date / Time No Known Allergies Allergy Verified 12/15/24 18:55 Family History Father Kidney stone Mother Ovarian cancer Family History no significant family his Surgical History S/P wisdom tooth extraction Surgical History no surgical history Social History household members: other details: Roommates housing: other details: [facility]. Smoking Status: Never smoker alcohol intake: current alcohol intake frequency: a few times a week details: Max 1-2 drinks 2 times per week. substance use type: does not use Review of Systems (Anesthesia) ROS Narrative System reviewed and no additional complaints, except as documented. Physical Exam Const alert, oriented x3 and average body habitus Resp normal respiratory effort, normal air movement and clear to auscultation bilaterally Cardio regular rate, regular rhythm, no murmurs and diaphoretic
[2024-12-17] MEDS: Midazolam 2 MG/2 ML Syringe IV (09:33)
[2024-12-17] MEDS: Lactated Ringers 1,000 ML 1000 ML IV (09:33)
[2024-12-17] MEDS: Lidocaine 1% (5 ml sdv) 5 ML Vial 8 ML IV (09:40)
[2024-12-17] MEDS: fentaNYL 100 MCG/2 ML Ampul IV (09:53)
[2024-12-17] MEDS: dexMEDEtomidine 200 MCG/2 ML ML 16 MCG IV (09:54)
--- NOTE | 2024-12-17 10:02 | OP.PCM_ITS ---
Operative Report (Standard) Operative Information Date of Procedure: 12/17/24 Pre-Operative Diagnosis: Right distal ureteral calculus and infection Post-Operative Diagnosis: The same Surgery/Procedure Performed: Cystoscopy balloon dilation of the right ureter right ureteroscopy basket extraction of stone and right stent placement inclusion special education teacher: No Type of Anesthesia: General RN Documented Start/Stop Times: Operation Date: 12/17/24 14:30 Case Time Into Pre-Op 12/17/24 09:05 Anesthesia Start 12/17/24 09:33 Into Room 12/17/24 09:33 Procedure Start 12/17/24 09:46 Procedure End 12/17/24 10:01 Procedure Start Time: :46 Procedure Stop Time: 10:01 Select all DRAINS/GRAFTS/IMPLANTS that apply: Drains Drain details: Right stent 6 x 24 Estimated Blood Loss: Minimal Specimen collected: Yes Description of specimen(s) removed: Stone Description of surgery: 19-year-old female presents to the hospital with an infection and a distal stone in distal right ureter has not been able to pass stone upon spontaneously it was a very small stone but still has not been able to pass the stone appears to be stuck so he taken to surgery today to extract the stone probably place a stent She was taken back to the operating room after induction of anesthesia placed in dorsolithotomy position. Went in the bladder with a 21 English rigid cy stourethroscope used the 0.038 Glidewire advanced up into the right ureter without any difficulty got passed a stone I then advanced a balloon dilator over the wire balloon dilated the distal ureter then next the wire went in with a semirigid ureteroscope but was not able to get the stone yet was still quite tight so I backed out and balloon dilated the stone with a second wire and is balloon dilator again let the second wire in place and then went over the second wire with the ureteroscope and this time was able to get into the ureter fairly easily without any trauma once I got to the stone then I used a engage basket was able to grab the stone with a basket and then pulled the stone out in entirety from the ureter the stone was handed off as a specimen then we backloaded over the safety wire and put a stent up into the right kidney as we did have to dilate the ureter twice left a string on the stent so we get pulled out easily in a week and patient anesthetic was reversed and she will follow-up in the office for stent removal. Next week Surgical Findings: Stone removed with a basket Complications Complications: No Admit VTE Documentation VTE Present on Admission: No VTE Mechan Device Prophylaxis: SCD's VTE Pharm Prophylaxis ordered?: No
--- NOTE | 2024-12-17 10:02 | DCINST_ITS ---
Discharge Instructions DC O2, CPAP, BIPAP needs Home O2 Discharge instructions: No Dressing / Incision Discharge Activity: Return to Normal Activity and May Not Drive (while taking narcotic pain medications.) Dressing / Incision Call your doctor if you observe: Fever of 101 or Higher Follow Up Care Please Follow Up With: Ken Rutledge MD When: Call [phone] for an appointment Test Results: Test results from this visit will be discussed in further detail at your follow- up appointment, if applicable. Discharge Plan Admission Admit Date/Time: 12/15/24 22:44 Primary Reason for Your Visit: kidney stone Attending Provider: Geovany Ureña Primary Care Provider: Kelsea Plummer NP Consulting Providers: Ken Rutledge; Alecia Shi; Jonas Finney Discharge Orders/Prescriptions Referrals / Follow Up: Ken Rutledge MD [Med Staff - Active Staff] - Kelsea Plummer NP, OPERATING ROOM SPECIALIST-C [Primary Care Provider] - Disposition Disposition (needs filled in before D/C Order can be placed): Home, Self Care
--- NOTE | 2024-12-17 10:13 | PCM.POST.ANE ---
Anesthesia: Postop Eval I Current Vital Signs Temperature: 98.0 F Pulse Rate: 86 Blood Pressure: 113/64 Respiratory Rate: 16 Pulse Ox: 94 Assessment Airway patent: Yes Spontaneous unlabored respirations: Yes nausea: No Vomiting: No Anesthesia Complication: No Fluid Hydration Crystalloid volume administer (ml): 1,000 Total IV fluid infused: 1,000 Progress Note Anesthesia document: Postop Eval 1 completed: Yes
[2024-12-17] MEDS: 0.9% Saline Lock 10 ML Syringe IV (11:44)
--- NOTE | 2024-12-17 12:00 | CALC_PTH ---
PATIENT: PORTIA TURNER LOC: [facility] U#:[id number] AGE/SX: 19/F ROOM: [facility] RE12/15/[address]: Dr. Geovany Ureña MD : 2005 BED: 1 DIS: 12/18/2024 SPEC #: [id number] RECD: 12/17/24 12:39 STATUS: VANESSA RELorin #: [id number] ERIKA: 12/17/24 12:[address]: Ken Rutledge DEPT: SURGICAL PATHOLOGY RECD BY: Tono Crain ENTERED: 12/17/24 14:29 SP TYPE: Calculi OTHR DR: MD Dr. Geovany Hamilton MD Dr. Nicholas F Kotsonis, MD Renee Metcalf, NP-C Tissues: A - CALCULI Procedures: Surgery Specimen Level I HEADER OPERATION: Ureteroscopy, balloon dilation, basket extraction, stent insertion PRE-OP DIAGNOSIS: Right ureteral stone TISSUE SUBMITTED: A- Right ureteral calculus, urinary with photo GROSS DIAGNOSIS * A. Ureter, right, calculus, ureteroscopy: * Urolithiasis (gross examination only). * Chemical analysis pending, to be reported separately. COMMENT The calculus is submitted in its entirety for chemical stone analysis. The results from this study will be reported separately. GROSS DESCRIPTION A. Received fresh labeled the patient's name and date of . Designated as right ureteral calculus, urinary with photo is a 0.3 cm light brown irregular calculus. No sections are submitted. The specimen is for gross examination only. The specimen is sent for stone analysis. [facility] 12/17/2024 CPT:94172
--- NOTE | 2024-12-17 12:49 | POSTOPAN2_ITS ---
Anesthesia Postop Eval I Sum Postop Eval Completion status Anesthesia document: Postop Eval 1 completed: Yes Anesthesia Postop Eval I Summary Anesthesia Postop Eval I Summary: Anesthesia Postop Eval I: Assessment Summary Airway patent Yes 12/17/24 10:13 ELECTRICAL SIGN [email or web address] Spontaneous unlabored Yes 12/17/24 10:13 ELECTRICAL SIGN [email or web address] respirations Mental status nausea No 12/17/24 10:13 ELECTRICAL SIGN [email or web address] Vomiting No 12/17/24 10:13 ELECTRICAL SIGN [email or web address] Anesthesia Postop Eval I: Fluid Summary Crystalloid volume administer 1,000 12/17/24 10:13 ELECTRICAL SIGN [email or web address] (ml) Colloids volume administered ( ml) Blood Product volume administered (ml) Total IV fluid infused 1,000 12/17/24 10:13 ELECTRICAL SIGN [email or web address] Anesthesia Postop Eval I: Summary Notes Anesthesia Complication No 12/17/24 10:13 ELECTRICAL SIGN [email or web address] Anesthesia Complication Comment: Post-operative progress note Anesthesia: Postop Eval II Evaluation Mental status: Awake Pain Level: 0 nausea: No Vomiting: No Complications Anesthesia Complication: No
--- NOTE | 2024-12-17 12:49 | PCM.POSTANE2 ---
Anesthesia Postop Eval I Sum Postop Eval Completion status Anesthesia document: Postop Eval 1 completed: Yes Anesthesia Postop Eval I Summary Anesthesia Postop Eval I Summary: Anesthesia Postop Eval I: Assessment Summary Airway patent Yes 12/17/24 10:13 ENTERTAINER & [email or web address] Spontaneous unlabored Yes 12/17/24 10:13 ENTERTAINER & [email or web address] respirations Mental status nausea No 12/17/24 10:13 ENTERTAINER & [email or web address] Vomiting No 12/17/24 10:13 ENTERTAINER & [email or web address] Anesthesia Postop Eval I: Fluid Summary Crystalloid volume administer 1,000 12/17/24 10:13 ENTERTAINER & [email or web address].TNES (ml) Colloids volume administered ( ml) Blood Product volume administered (ml) Total IV fluid infused 1,000 12/17/24 10:13 ENTERTAINER & [email or web address] Anesthesia Postop Eval I: Summary Notes Anesthesia Complication No 12/17/24 10:13 ENTERTAINER & [email or web address] Anesthesia Complication Comment: Post-operative progress note Anesthesia: Postop Eval II Evaluation Mental status: Awake Pain Level: 0 nausea: No Vomiting: No Complications Anesthesia Complication: No
[2024-12-18 00:34] VITALS: BP 116/72; PULSE 91; RESP 16; TEMP 36.6; O2SAT 100
[2024-12-18 05:28] VITALS: BP 121/70; PULSE 53; RESP 18; TEMP 36.4; O2SAT 100
[2024-12-18 06:49] LABS: Hematocrit 27.7 % (37-47); Hemoglobin 9.1 g/dL (12.0-15.0); Immature Granulocytes Count 0.040 X10^3/uL (0.0-0.0); Mean Corp Hgb Conc 32.9 g/dL (32-36); Mean Corpuscular Volume 81.7 fL (81-99); Mean Platelet Vol. 10.0 fl (6.2-12.0); NRBC Flagged by Analyzer 0 % (0-5); Platelet Count 218 K/mm3 (150-450); RBC Distribution Width CV 14.6 % (11.6-14.6); RBC Distribution Width SD 44.4 fl (35.1-43.9); Red Blood Count 3.39 M/mm3 (4.2-5.4); White Blood Count 7.1 K/mm3 (4.4-11.0)
--- NOTE | 2024-12-18 06:53 | PCM.DC.SUM ---
Providers Date of Admission: 12/15/24 Primary Care Physician: OLIVE Lee Consultations 12/15/24 23:12 Consult: Urology Routine Consulting Provider: Ken Rutledge Reason for Consult: Pyelonephritis, kidney stone EMERGENT Consult: No MD Notified: Yes Date Notified: 12/15/24 Time Notified: 23:05 Method of Notification: ED Physician Initiated Reason For Visit: ACUTE PYELONEPHRITIS Diagnosis Discharge Diagnosis (1) Pyelonephritis: Status: Acute Code(s): N12 - Tubulo-interstitial nephritis, not specified as acute or chronic (2) Calculus, ureteral: Status: Acute Code(s): N20.1 - Calculus of ureter Plan Patient is a 21-year-old lady who presented with right flank pain. An assessment of pyelonephritis made admitted to regular nursing floor for further management 1. Acute complicated pyelonephritis with mildly obstructing stone in the distal right ureter with E. coli ? Admitted to regular nursing floor treatment started with pain meds IV fluid antibiotics with consult placed to urology. Urine cultures obtained on admission so far positive for E. coli ? 12/18/2024 patient underwent Cystoscopy balloon dilation of the right ureter right ureteroscopy basket extraction of stone and right stent placement by Dr Rutledge on 12/17/2024. Patient was discharged with Cipro. 2. DVT prophylaxis ? Low risk to encourage early ambulation Medications at Discharge Home Medications phenazopyridine 100 mg tablet (Pyridium) 100 mg PO TID #15 tabs 12/17/24 tamsulosin 0.4 mg capsule (Flomax) 0.4 mg PO DAILY #10 caps 12/17/24 ciprofloxacin HCl 500 mg tablet (Cipro) 500 mg PO BID #20 tabs 12/18/24 Hospital Course Summary of Care Provided Minutes Spent on Discharge: 32 Physical Exam Narrative GENERAL: cooperative HEENT: Atraumatic; normocephalic EYES; Anicteric, Normal Conjunctiva NECK; supple, normal thyroid, RESPIRATORY: Diminished to auscultation CARDIOVASCULAR: Regular S1 S2, GI: soft, normoactive bowel sounds, : No Renal angle tenderness; EXTREMITIES: No edema, no clubbing, MUSCULOSKELETAL: no muscle wasting NEURO: Awake; no lateralizing signs. SKIN: No Rash PSYCH; Flat affect Weight / BMI Weight Weight: 63 kg Body Mass Index (BMI) 24.5 ABG / Lab / Microbiology Data 12/18/24 06:21 12/18/24 06:21 Laboratory: Laboratory Results - last 24 hr 12/18/24 06:21: WBC 7.1, RBC 3.39 L, Hgb 9.1 L, Hct 27.7 L, MCV 81.7, MCH 26.8 L, MCHC 32.9, RDW Std Deviation 44.4 H, RDW Coeff of Solomon 14.6, Plt Count 218, MPV 10.0, Immature Gran % (Auto) 0.600, Neut % (Auto) 72.4 H, Lymph % (Auto) 19.2, Gulf % (Auto) 7.8, Eos % (Auto) 0.0, Baso % (Auto) 0.0, Absolute Neuts (auto) 5.1, Absolute Lymphs (auto) 1.36, Nucleated RBC % 0, Sodium 141, Potassium 4.1, Chloride 110 H, Carbon Dioxide 19.9 L, Anion Gap 12, BUN 7, Creatinine 0.45 L, Estim Creat Clear Calc 178.31, Est GFR (MDRD) Non-Af 141, BUN/Creatinine Ratio 14.7, Glucose 131 H, Calcium 9.0, Phosphorus 3.4, Magnesium 2.0 Microbiology: Microbiology 12/15/24 19:43 Urine, Clean Catch Urine Culture - Final Presumptive E. coli D/C Instructions Discharge Activity: Return to Normal Activity Call your doctor if you observe: Fever of 101 or Higher DC O2, CPAP, BIPAP Needs Home O2 Discharge instructions: No Please Follow Up With: Ken Rutledge MD When: Call [phone] for an appointment Meaningful Use Info Meaningful Use Meaningful Use Diagnoses (Choose all that apply): None applicable Discharge Plan Admission Admit Date/Time: 12/15/24 22:44 Primary Reason for Your Visit: kidney stone Attending Provider: Geovany Ureña Primary Care Provider: Kelsea Plummer NP Consulting Providers: Ken Rutledge; Alecia Shi; Jonas Finney Discharge Orders/Prescriptions Prescriptions: New phenazopyridine [Pyridium] 100 mg tablet 100 mg PO TID Qty: 15 0RF tamsulosin [Flomax] 0.4 mg capsule 0.4 mg PO DAILY Qty: 10 0RF ciprofloxacin HCl [Cipro] 500 mg tablet 500 mg PO BID Qty: 20 0RF Referrals / Follow Up: Ken Rutledge MD [Med Staff - Active Staff] - In 1 Week Kelsea Plummer NP, SHIFT SUPERVISOR-C [Primary Care Provider] - Disposition Disposition (needs filled in before D/C Order can be placed): Home, Self Care Charges/Coding Visit Charges Inpatient E&M: 66556 Disch Hosp >30min
[2024-12-18 07:12] LABS: Anion Gap 12 (5-15); BUN 7 mg/dL (4-19); BUN/Creat Ratio 14.7 RATIO (10-20); Calcium,Total 9.0 mg/dL (7.6-11.0); Carbon Dioxide 19.9 mmol/L (21.0-32.0); Chloride 110 mmol/L (98-108); Estimated Creatinine Clearance 178.31 ml/min (50-250); Glucose 131 mg/dL (70-99); Magnesium 2.0 mg/dL (1.5-2.2); Potassium 4.1 mmol/L (3.3-5.1)
--- NOTE | 2024-12-18 07:31 | PCM.CONS.B ---
Consult Date of Consult: 12/18/24 Reason for Consult Status post cystoscopy ureteroscopy extraction of stone and stent placement patient looks better this morning probably can go home she is to follow-up in my office next week to have the stent removed.
[2024-12-18 08:47] VITALS: BP 116/74; PULSE 64; RESP 14; TEMP 36.5; O2SAT 99
== END 2024-12-18 10:48 | disposition home or self-care (01) | DRG 660 ==
LOC: ED 22:25 → MS3 23:01
PROVIDERS: Family Medicine; Urology; Admitting Provider Family Medicine; Emergency Provider Emergency Medicine; PCP Nurse Practitioner Family; Visit Provider Internal Medicine
PROC: 0T768ZZ Dilation of Right Ureter, Via Natural or Artificial Opening Endoscopic (ICD-10-PCS; CPT 52356; principal; 2024-12-17 14:20)
DX: N12 Tubulo-interstitial nephritis, not specified as acute or chronic (principal); N20.1 Calculus of ureter; D64.9 Anemia, unspecified; R73.9 Hyperglycemia, unspecified; R03.0 Elevated blood-pressure reading, without diagnosis of hypertension
CPT/HCPCS: 36415; 74177; 80048; 80053; 81001; 82360; 83690; 83735; 84100; 84703; 85025; 87086; 87088; 87186; 88300; 99283; Q9967; A4216; C1769; C2617; J2405